=== PATIENT | female | born 1975 | race Caucasian/White ===

== ENCOUNTER → 2016-11-25 19:21 | Outpatient (CLI) | payer BC ==
[2014-12-09 12:22] VITALS: BMI 21.1
[~2016-11-25 19:21] MED LIST: CYCLOBENZAPRINE10 MG PO; HYDROCODONE-APA1 TAB PO; IBUPROFEN600 MG PO; LAMICTAL100 MG PO; MOBIC7.5 MG PO; NEURONTIN 300300 MG PO; PEPCID20 MG PO; WELLBUTRIN SR150 MG PO; XANAX0.5 MG PO
== END | disposition home or self-care (01) ==
LOC: D.RAD 19:21
DX: S69.91XA Unspecified injury of right wrist, hand and finger(s), initial encounter (principal)

== ENCOUNTER → 2017-02-08 16:05 | Outpatient (CLI) | payer BC ==
[2014-12-09 12:22] VITALS: BMI 21.1
== END | disposition home or self-care (01) ==
LOC: D.CT 16:00
DX: R10.32 Left lower quadrant pain (principal)

== ENCOUNTER 2017-06-02 16:45 | Emergency (ER) | payer BC ==
[2014-12-09 12:22] VITALS: BMI 21.1
[2017-06-02 17:24] LABS: BASOPHILS 0.1 % (0-2); EOSINOPHILS 3.6 % (0-7); HEMATOCRIT 39.3 % (36.0-48.0); HEMOGLOBIN 13.7 g/dL (12-16); IMMATURE GRANULOCYTES 0.3 % (0-5); LYMPHOCYTES 32.6 % (15-50); MCH 30.4 pg (26.0-34.0); MCHC 34.9 g/dL (31.0-37.0); MCV 87.3 fL (80.0-100.0); MEAN PLATELET VOLUME 9.4 fL (7.4-10.4); MONOCYTES 9.7 % (2-11); NEUTROPHILS 53.7 % (40-80); PLATELET COUNT 246 10x3/uL (130-400); RDW 13.1 % (11.5-14.5); WBC 7.9 10x3/uL (4.8-10.8)
[2017-06-02 17:38] LABS: ALBUMIN 3.9 g/dL (3.4-5.0); ALKALINE PHOSPHATASE 54 U/L (46-116); ALT (SGPT) 12 U/L (10-68); BILIRUBIN - TOTAL 0.16 mg/dL (0.2-1.3); CALC OSMOLALITY 277 mosm/kg (275-300); CALCIUM 8.8 mg/dL (8.5-10.1); CARBON DIOXIDE 22.5 mmol/L (21.0-32.0); CHLORIDE - SERUM 106 mmol/L (98-107); CREATININE - SERUM 0.7 mg/dL (0.6-1.3); GLUCOSE 115 mg/dL (74-106); POTASSIUM - SERUM 3.8 mmol/L (3.5-5.1); PROTEIN - SERUM 7.3 g/dL (6.4-8.2); SODIUM 140 mmol/L (136-145); UREA NITROGEN 8 mg/dL (7-18); eGFR NON AFRICAN AMERICAN > 90 mL/min (90-120)
[2017-06-02 17:49] LABS: CHOL - HDL RATIO 3.7 ratio (2.3-4.1); CHOLESTEROL, TOTAL 152 mg/dL (0-200); CKMB 0.4 U/L (0.0-3.6); CREATINE KINASE 65 UL (21-215); HDL CHOLESTEROL 41 mg/dL (32-96); LDL CHOLESTEROL 90 mg/dL (0-100); LDL-HDL RATIO 2.2 ratio (1.5-3.5); TRIGLYCERIDE 105 mg/dL (30-200)
[2017-06-02 17:50] LABS: TROPONIN-I < 0.017 ng/mL (0.000-0.060)
== END 2017-06-02 21:33 | disposition home or self-care (01) ==
LOC: D.ER 16:45
PROVIDERS: Emergency Medicine
DX: R07.89 Other chest pain (principal); K21.9 Gastro-esophageal reflux disease without esophagitis; I10 Essential (primary) hypertension; F17.200 Nicotine dependence, unspecified, uncomplicated

== ENCOUNTER 2017-06-03 03:55 | Emergency (ER) | payer BC ==
[2014-12-09 12:22] VITALS: BMI 21.1
[2017-06-03 04:21] LABS: BASOPHILS 0.2 % (0-2); EOSINOPHILS 2.4 % (0-7); HEMATOCRIT 39.6 % (36.0-48.0); HEMOGLOBIN 13.9 g/dL (12-16); IMMATURE GRANULOCYTES 0.3 % (0-5); LYMPHOCYTES 30.7 % (15-50); MCH 30.2 pg (26.0-34.0); MCHC 35.1 g/dL (31.0-37.0); MCV 85.9 fL (80.0-100.0); MEAN PLATELET VOLUME 9.4 fL (7.4-10.4); MONOCYTES 8.7 % (2-11); NEUTROPHILS 57.7 % (40-80); PLATELET COUNT 268 10x3/uL (130-400); RBC 4.61 10x6/uL (4.00-5.40); RDW 13.1 % (11.5-14.5)
[2017-06-03 04:22] LABS: WBC 13.6 10x3/uL (4.8-10.8)
[2017-06-03 05:01] LABS: CKMB 1.3 U/L (0.0-3.6); CREATINE KINASE 66 UL (21-215); TROPONIN-I 0.053 ng/mL (0.000-0.060)
[2017-06-04] MEDS ORDERED: PREVACID30 MG PO (02:27)
[2017-06-04] MEDS ORDERED: ATIVAN0.5 MG PO (02:38)
[2017-06-04] MEDS ORDERED: NORMODYNE / TR100 MG PO (02:38)
== END 2017-06-03 06:13 | disposition home or self-care (01) ==
LOC: D.ER 03:55
PROVIDERS: Emergency Medicine
DX: R07.9 Chest pain, unspecified (principal); K21.9 Gastro-esophageal reflux disease without esophagitis; I10 Essential (primary) hypertension

== ENCOUNTER 2017-06-03 23:23 | Observation (INO) | payer BC ==
[~2017-06-03] VITALS: Ht 165.1 cm; Wt 59.1 kg
--- NOTE | ~2017-06-03 | HEMODYNAMI ---
PATIENT:ANTHONY MANCINI MEDICAL RECORD: [id number] : 73 LOCATION:[facility] [place] ADMISSION DATE: 06/04/17 Generatedon:06/04/201710:57 Patient name: ANTHONY MANCINI Patient #: [id number] SSN: DO B: 1975 Date of study: 06/04/2017 Page: Of Hemodynamic Procedure Report Patient Data Patient Demographics Procedure consent was obtained First Name: ANTHONY Gender: Female Last Name: ADDIS : 1975 Middle Initial: ALBERT Age: 41 year(s) Patient #: [id number] Race: Unknown Additional ID: [id number] Contact details [address]: [address] [place] [address] State: [place] City: [place] Zip code: [address] Past Medical History Allergies Allergen Reaction Date Comments Reported Natural rubber 06/04/2017 and latex Other allergy 06/04/2017 dilaudid, lyrica Admission Admission Data Admission Date: 06/04/2017 Admission Time: 2:05 Room #: [id number] Procedure Procedure Types Cath Procedure Diagnostic Procedure [facility] w/Coronaries PCI Procedure Coronary Stent Coronary Stent Initial Miscellaneous Procedures Moderate Sedation up to 15 minutes Procedure Description Procedure Date Procedure Date: 06/04/2017 Procedure Start Time: 10:36 Procedure End Time: 10:56 Procedure Staff Name Function Davidson Guadalupe MD Performing Physician Cierra Tinsley RT Monitor Clinton Castillo RT Scrub Diony Price RN Nurse Procedure Data Cath Procedure Fluoroscopy Diagnostic fluoroscopy Total fluoroscopy Time: 3.5 time: 3.5 min min Diagnostic fluoroscopy Total fluoroscopy dose: 315 dose: 315 mGy mGy Contrast Material Contrast Material Type Amount (ml) Isovue 300 70 Entry Location Entry Primary Successful Side Size Upsize Upsize Entry Closure Ervin ccessful Closure Location (Fr) 1 (Fr) 2 (Fr) Remarks Device Remarks Radial Right 6 Fr Mechanical artery Short Compression Estimated blood loss: 10 ml Diagnostic catheters Device Type Used For End Catheter Placement DIAGNOSTIC Fenwick 110cm 5 LV Angiography Fr catheter ([id number]) DIAGNOSTIC Fenwick 110cm 5 Right Coronary Fr catheter ([id number]) Angiography DIAGNOSTIC Fenwick 110cm 5 Left Coronary Fr catheter ([id number]) Angiography Procedure Complications No complications Procedure Medications Medication Administration Route Dosage 0.9% NaCl I.V. 100 ml/hr Oxygen NC 2 l/min Heparin Flush Bag added to field 2 bags (1000units/500ml NS) Lidocaine 2% added to field 20 Radial Cocktail added to field 1 syringe (Verapomil 2mg/Nitro 400mcg/Heparin 1500units) Versed I.V. 1 mg Fentanyl I.V. 50 mcg Radial Cocktail I.A. 1 syringe (Verapomil 2mg/Nitro 400mcg/Heparin 1500units) Heparin Bolus I.V. 4000 units Integrilin (Bolus I.V. 5 ml 2mg/ml) Integrilin (Bolus wasted 5 ml 2mg/ml) Versed I.V. 1 mg Fentanyl I.V. 50 mcg Plavix P.O. 600 mg Hemodynamics Rest Heart Rate: 83 (bpm) Snapshots Pre Cath Intra NCS Post Cath Vital Signs Time Heart Resp SPO2 etCO2 NIBP (mmHg) Rhythm Pain Sedation Rate (ipm) (%) (mmHg) Status Level (bpm) 10:17:13 81 16 96 33.2 124/82(102) NSR 0 (11) 10(A) , No pain 10:21:48 85 13 97 31.7 124/82(94) NSR 0 (11) 10(A) , No pain 10:26:24 87 15 94 32.4 124/77(95) NSR 0 (11) 10(A) , No pain 10:31:01 85 15 95 36.3 119/71(91) NSR 0 (11) 10(A) , No pain 10:35:35 84 14 98 35.5 111/82(94) NSR 0 (11) 9(A) , No pain 10:40:07 92 16 92 37.8 105/76(92) NSR 0 (11) 9(A) , No pain 10:44:36 90 14 95 27.9 117/76(96) NSR 0 (11) 9(A) , No pain 10:49:12 90 16 94 40.8 118/72(90) NSR 0 (11) 10(A) , No pain 10:53:45 85 17 93 0 113/72(87) NSR 0 (11) 10(A) , No pain Medications Time Medication Route Dose Verified Delivered Reason Note s Effectiveness by by 10:23:37 0.9% NaCl I.V. 100 Diony Diony Per physician ml/hr Albert Price RN RN 10:23:48 Oxygen NC 2 l/min Diony Diony Per physician Albert Price RN RN 10:24:10 Heparin Flush added 2 bags Diony Diony used for Bag to Albert Price procedure (1000units/500ml field RN RN NS) 10:24:33 Lidocaine 2% added 20ml Diony Diony for local to vial Albert Price anesthetic RN RN 10:24:45 Radial Cocktail added 1 Diony Diony for (Verapomil to syringe Albert Price vasodilation 2mg/Nitro field RN RN 400mcg/Heparin 1500units) 10:35:57 Versed I.V. 1 mg Diony Diony for sedation Albert Price RN RN 10:36:08 Fentanyl I.V. 50 mcg Diony Diony for sedation Albert Price RN RN 10:37:05 Radial Cocktail I.A. 1 Diony Davidson for (Verapomil syringe Albert Guadalupe MD vasodilation 2mg/Nitro RN 400mcg/Heparin 1500units) 10:44:42 Heparin Bolus I.V. 4000 Diony Diony for units Albert Price anticoagulation RN RN 10:45:00 Integrilin I.V. 5 ml Diony Diony for (Bolus 2mg/ml) Albert Price antiplatelet RN RN therapy 10:46:06 Integrilin wasted 5 ml Diony Diony to sharp's (Bolus 2mg/ml) Albert Price RN RN 10:47:04 Versed I.V. 1 mg Diony Diony for sedation Albert Price RN RN 10:47:12 Fentanyl I.V. 50 mcg Diony Diony for sedation Albert Price RN RN 10:51:44 Plavix P.O. 600 mg Diony Diony for Albert Price antiplatelet RN RN therapy Procedure Log Time Note 10:03:14 Clinton BOLDEN(R) sent for patient. Start room use. 10:03:15 Time tracking: Regular hours 10:03:20 Plan of Care:Hemodynamics will remain stable., Cardiac rhythm will remain stable., Comfort level will be maintained., Respiratory function will remain adequate., Patient/ family verbilizes understanding of procedure., Procedure tolerated without complication., Recovers from procedure without complications.. 10:12:16 Patient received from Med/Surg to CCL 1 Alert and oriented. Tansferred to table in Supine position. 10:12:18 Warm blankets applied, and connie hugger turned on for patient comfort. 10:12:18 Correct patient and procedure confirmed by team. 10:12:20 Signed procedure consent form obtained from patient. 10:12:20 ECG and BP/O2 sat monitors applied to patient. 10:16:26 Vital chart was started 10:17:42 Baseline sample Acquired. 10:23:13 Full Disclosure recording started 10:23:19 Rhythm: sinus rhythm 10:23:37 0.9% NaCl 100 ml/hr I.V. was administered by Diony Price RN; Per physician; 10:23:48 Oxygen 2 l/min NC was administered by Diony Price RN; Per physician; 10:23:56 H&P Date Dictated: 06/04/2017 Within 30 days and on chart.. 10:23:57 Pre-procedure instructions explained to patient. 10:23:58 Pre-op teaching completed and patient verbalized understanding. 10:24:00 Family in patients room. 10:24:01 Patient NPO since Midnight. 10:24:09 Patient allergic to Natural rubber and latex 10:24:10 Heparin Flush Bag (1000units/500ml NS) 2 bags added to field was administered by Diony Price RN; used for procedure; 10:24:31 Patient allergic to Other allergy dilaudid, lyrica 10:24:33 Lidocaine 2% 20ml vial added to field was administered by Diony Price RN; for local anesthetic; 10:24:43 Is the patient allergic to Iodine/contrast media? No. 10:24:45 Radial Cocktail (Verapomil 2mg/Nitro 400mcg/Heparin 1500units) 1 syringe added to field was administered by Diony Price RN; for vasodilation; 10:25:45 Is patient on blood thinner?No 10:25:48 Patient diabetic? No. 10:25:51 Previous problem with sedation/anesthesia? No ? 10:25:53 Snore? No 10:25:55 Sleep apnea? No 10:27:43 Patient not . Patient has had hysterectomy. 10:27:45 Deviated septum? No 10:27:46 Opens mouth fully? Yes 10:27:46 Sticks out tongue? Yes 10:27:48 Airway obstruction? No ? 10:27:50 Dentures? No ? 10:28:28 Pre procedure: right dorsailis pedis pulse 2+ Normal; easily identifiable; not easily obliterated 10:28:32 Modified Brandon's test Ulnar < 7 seconds 10:28:34 Patient pain scale 0/10 ?. 10:28:42 IV patent on arrival in left forearm with 0.9% NaCl at [facility]. 10:28:45 Lab results completed and on chart. 10:28:47 Right Radial & Right Groin area was prepped with chlora-prep and draped in sterile fashion 10:28:49 Alarms reviewed by R. N. 10:28:49 Sharps counted by scrub and verified by R.N. 10:28:53 Use device set Radial Dx 10:28:55 ACIST Syringe (13015) opened to sterile field. 10:28:56 Medline Cath Pack ([id number]) opened to sterile field. 10:28:56 Bag Decanter (2002S) opened to sterile field. 10:28:57 SHEATH 6FR Slender ([id number]) opened to sterile field. 10:28:58 DIAGNOSTIC WIRE .035 260cm J wire (363312) opened to sterile field. 10:28:58 ACIST Hand Control (26230) opened to sterile field. 10:28:59 ACIST Manifold (56596) opened to sterile field. 10:29:00 Tegaderm 4 x 4 (1626W) opened to sterile field. 10:29:04 MBrace Wrist Support ([id number]) opened to sterile field. 10:30:55 Zero performed for pressure channel P1 10:35:02 Final Timeout: patient, procedure, and site verified with staff and physician. All members of the team are in agreement. 10:35:05 Right Radial site verified by team. 10:35:08 Physical assessment completed. ASA score P 2 - A patient with mild systemic disease as per Davidson Guadalupe MD. 10:35:11 Sedation plan: IV Moderate Sedation Medication:Versed, Fentanyl 10:35:57 Versed 1 mg I.V. was administered by Diony Price RN; for sedation; 10:36:08 Fentanyl 50 mcg I.V. was administered by Diony Price RN; for sedation; 10:36:14 Procedure started. 10:36:19 Local anesthetic to right radial artery with Lidocaine 2% by Davidson Guadalupe MD.INITIAL ACCESS ONLY 10:36:46 A 6 Fr Short sheath was inserted into the Right Radial artery 10:37:05 Radial Cocktail (Verapomil 2mg/Nitro 400mcg/Heparin 1500units) 1 syringe I.A. was administered by Davidson Guadalupe MD; for vasodilation; 10:38:11 A DIAGNOSTIC Fenwick 110cm 5 Fr catheter (650419) was advanced over the wire and used for LV Angiography. 10:38:39 LV gram done using BUENROSTRO 10:38:44 Injector settings: Ml/sec: 5, Volume: 15, 10:38:50 EF : 60 % 10:38:59 A DIAGNOSTIC Fenwick 110cm 5 Fr catheter ([id number]) was advanced over the wire and used for Right Coronary Angiography. 10:39:15 A DIAGNOSTIC Fenwick 110cm 5 Fr catheter (590068) was advanced over the wire and used for Left Coronary Angiography. 10:39:49 Catheter removed. 10:40:06 Use device set [facility] PCI 10:40:16 INFLATOR Merit BasixCompak (YX8179) opened to sterile field. 10:42:27 CHOICE PT Extra Support J 300cm guide wire ([id number]) opened to sterile field. 10:43:37 6 Fr XB 3.5 guide catheter was inserted over the wire 10:43:45 Choice PT ES wire advanced. 10:44:32 Inflation number: 1 A MAVERICK 2.5 X 15 balloon ([id number]) was prepped and advanced across the Mid CX, then inflated to 9 RODRÍGUEZ for 0:10 (min:sec). 10:44:41 Inflation number: 2 The MAVERICK 2.5 X 15 balloon ([id number]) was reinflated across the Mid CX, to 9 RODRÍGUEZ for 0:06 (min:sec). 10:44:42 Heparin Bolus 4000 units I.V. was administered by Diony Lorigan RN; for anticoagulation; 10:44:50 Balloon removed over the wire. 10:45:00 Integrilin (Bolus 2mg/ml) 5 ml I.V. was administered by Diony Price RN; for antiplatelet therapy; 10:46:06 Integrilin (Bolus 2mg/ml) 5 ml wasted was administered by Diony Price RN; to sharp's; 10:46:37 Inflation Number: 3 A INTEGRITY OTW 3.5 X 18 stent ([id number]) was prepped and advanced across the Mid CX. The stent was deployed at 13 RODRÍGUEZ for 0:05 (min:sec). 10:46:58 Stent catheter was removed intact over wire. 10:46:58 Wire removed. 10:47:00 Guide catheter removed. 10:47:04 Versed 1 mg I.V. was administered by Diony Price RN; for sedation; 10:47:12 Fentanyl 50 mcg I.V. was administered by Diony Price RN; for sedation; 10:47:16 Sheath removed intact; hemostasis achieved with Mechanical Compression to the Right Radial artery. 10:47:18 Procedure ended.(Physican Out) 10:47:31 TR BAND Standard ([id number]) opened to sterile field. 10:47:42 Fluoroscopy time 03.50 minutes. 10:47:47 Fluoroscopy dose: 315 mGy 10:47:47 Flurop Dose total: 315 10:47:50 Contrast amount:Isovue 300 70ml. 10:47:51 Sharps counted by scrub and verified by R.N. 10:47:55 TR band inflated with 12cc of air. 10:47:57 Insertion/operative site no bleeding no hematoma. 10:48:03 Post right femoral artery:stable, clean and dry 10:48:18 Post Procedure Pulses reassessed and unchanged 10:48:20 Post-procedure physical assessment completed. ASA score P 2 - A patient with mild systemic disease as per Davidson Guadalupe MD. 10:48:22 Post procedure rhythm: unchanged. 10:48:24 Estimated blood loss: 10 ml 10:48:26 Post procedure instruction explained to patient.Patient verbalizes understanding. 10:48:26 Patient needs reinforcement of post procedure teaching. 10:48:43 Procedure type changed to Cath procedure, Diagnostic procedure, LHC, LHC w/Coronaries, PCI procedure, Coronary Stent, Coronary Stent Initial, Miscellaneous Procedures, Moderate Sedation up to 15 minutes 10:48:48 Procedure Complication : No complications 10:48:51 See physician's report for complete and final results. 10:49:54 GUIDE 6FR XB 3.5 catheter ([id number]) opened to sterile field. 10:51:44 Plavix 600 mg P.O. was administered by Diony Price RN; for antiplatelet therapy; 10:52:42 Procedure and supply charges have been captured, reviewed, submitted and are correct. 10:53:57 Vital chart was stopped 10:55:54 Report given to Med/Surg. 10:55:59 Patient transfered to Med/Surg with Bed. 10:56:11 Procedure ended. 10:56:11 Full Disclosure recording stopped 10:56:16 End room use (Document Last) Intervention Summary Intervention Notes Time ActionType Lesion and Equipment Action# Pressure Duration Attributes Used 10:44:32 Inflate Mid CX MAVERICK 2.5 1 9 00:10 balloon X 15 balloon ([id number]) 10:44:41 Reinflate Mid CX MAVERICK 2.5 2 9 00:06 balloon X 15 balloon ([id number]) 10:46:37 Place stent Mid CX INTEGRITY 3 13 00:05 OTW 3.5 X 18 stent ([id number]) Device Usage Item Name Manufacture Quantity Catalog Number Hospital Part Current Min imal Lot# / Charge Number Stock Stock Serial# Code ACIST Acist 1 67397 397996 973853 977547 20 Syringe [employer] (36391) Systems Inc Medline Cath Cardinal 1 [id number] 918355 00199 373302 5 Pack N30 [employer]aceuticals ([id number]) Bag Decanter Microtek 1 2001S 399243 43313 720247 5 () Medical Inc. SHEATH 6FR Terumo 1 [id number] 384094 914655 151690 40 Slender ([id number]) DIAGNOSTIC St Navjot 1 410978 155372 349800 043126 30 WIRE .035 260cm J wire (114998) ACIST Hand Acist 1 85592 831698 159834 882510 5 Control Medical (11360) Systems Inc ACIST Acist 1 20832 942219 945482 953580 5 Manifold Medical (42168) Systems Inc Tegaderm 4 x 3M 1 1626W 722189 727029 506648 5 4 (1626W) MBrace Wrist Advanced 1 140-0250-00 079010 11584 765320 5 Support Vascular ([id number]) Dynamics DIAGNOSTIC Terumo 1 40-5013 673857 279804 378510 5 Fenwick 110cm 5 Fr catheter (508741) INFLATOR Merit 1 FJ1786 447926 146612 945634 15 [facility] Medical BasixCompak (JM4476) CHOICE PT [place] 1 [id number] 537927 20181230 086175 5 Extra Scientific Support J 300cm guide wire ([id number]) MAVERICK 2.5 [place] 1 [id number] 199768 321019 983371 1 [id number] X 15 balloon Scientific ([id number]) INTEGRITY Medtronic 1 [id number] 966015 836149 5 [id number] OTW 3.5 X 18 stent ([id number]) TR BAND Terumo 1 [id number] 777288 815518 198192 40 Standard ([id number]) GUIDE 6FR XB Cardinal 1 [id number] 969703 944110 138507 2 3.5 catheter Health (44835974) Signature Audit [place] Stage Time Signature Unsigned Intra-Procedure 06/04/2017 Cierra 10:56:57 AM Counts RT(R) Signatures Monitor : Cierra Signature : Counts RT Date : Time : [id number] [place] [address]
[2017-06-04] VITALS (8 sets, daily range): BP systolic 105–127; BP diastolic 69–84; Ht 165.1 cm; Wt 59.1 kg
[2017-06-04 00:14] LABS: HEMATOCRIT 41.9 % (36.0-48.0); HEMOGLOBIN 14.9 g/dL (12-16); MCH 30.2 pg (26.0-34.0); MCHC 35.6 g/dL (31.0-37.0); MEAN PLATELET VOLUME 9.1 fL (7.4-10.4); PLATELET COUNT 311 10x3/uL (130-400); RBC 4.93 10x6/uL (4.00-5.40); RDW 13.6 % (11.5-14.5); WBC 22.6 10x3/uL (4.8-10.8)
[2017-06-04 00:28] LABS: ALBUMIN 4.1 g/dL (3.4-5.0); ALKALINE PHOSPHATASE 56 U/L (46-116); CALC OSMOLALITY 277 mosm/kg (275-300); CALCIUM 9.6 mg/dL (8.5-10.1); CARBON DIOXIDE 20.7 mmol/L (21.0-32.0); CHLORIDE - SERUM 104 mmol/L (98-107); CREATININE - SERUM 0.8 mg/dL (0.6-1.3); GLUCOSE 130 mg/dL (74-106); POTASSIUM - SERUM 3.9 mmol/L (3.5-5.1); SODIUM 139 mmol/L (136-145); UREA NITROGEN 8 mg/dL (7-18); eGFR NON AFRICAN AMERICAN 83 mL/min (90-120)
[2017-06-04 00:36] LABS: ALT (SGPT) 30 U/L (10-68)
[2017-06-04 00:44] LABS: AMYLASE - SERUM 29 U/L (25-115); CHOL - HDL RATIO 3.7 ratio (2.3-4.1); CHOLESTEROL, TOTAL 186 mg/dL (0-200); CKMB 223.9 U/L (0.0-3.6); HDL CHOLESTEROL 51 mg/dL (32-96); LDL CHOLESTEROL 114 mg/dL (0-100); LDL-HDL RATIO 2.2 ratio (1.5-3.5); LIPASE 108 U/L (73-393); TRIGLYCERIDE 107 mg/dL (30-200)
[2017-06-04 00:49] LABS: CREATINE KINASE 1463 UL (21-215)
[2017-06-04 00:52] LABS: TROPONIN-I 18.839 ng/mL (0.000-0.060)
[2017-06-04 01:29] LABS: LYMPHOCYTES 9 % (15-50); MONOCYTES 2 % (2-11); NEUTROPHILS 88 % (40-80); PLATELET ESTIMATE NORMAL
[2017-06-04] MEDS ORDERED: PREVACID30 MG PO (02:27)
[2017-06-04] MEDS ORDERED: ATIVAN0.5 MG PO (02:38)
[2017-06-04] MEDS ORDERED: NORMODYNE / TR100 MG PO (02:38)
[2017-06-04 03:10] LABS: CREATINE KINASE 1489 UL (21-215); TROPONIN-I 27.218 ng/mL (0.000-0.060)
[2017-06-04 03:11] LABS: CKMB 221.6 U/L (0.0-3.6)
--- NOTE | 2017-06-04 06:35 | NUR ---
PT RECEIVED VIA WHEELCHAIR FROM ER @ 02:20 THIS A.M., AWAKE, ALERT, ORIENTED WITH FAMILY AT SIDE. PT DENIED CHEST PAIN INITIALLY, STATING THE TORADOL AND MORPHINE IN THE ER DID HELP WITH HER PAIN, HOWEVER WITHIN 4 HOURS PT HAD ANOTHER EPISODE OF CHEST PAIN WITH RADIATION INTO HER NECK AND SHOULDERS. PRN MORPHINE GIVEN WITH MILD RELIEF. I ALSO PLACED O2 VIA NC ON PT FOR COMFORT MEASURES, PT DID DEMONSTRATE INCREASED SOB WITH HER ANGINA. PT IS CURRENTLY SITTING UP IN BED, TALKING ON HER CELL PHONE, FAMILY STILL AT BEDSIDE. NO NEEDS AT THIS TIME. CONTINUE TO MONITOR.
--- NOTE | 2017-06-04 08:26 | NUR ---
PT SEEN EARILER. COMPLAINTS OF PAIN GENERALIZED TO HEAD, BACK, AND CHEST. PAIN MEDS GIVEN. OXYGEN ON AT 2 L PER NC. NO SOB NOTED OR NO NAUSEA EITHER. NPO FOR POSSIBLE PROCEDURE TODAY. FAMILY AT BEDSIDE. MONITOR SHOWS SR 98. CALL LIGHT IN REACH
[2017-06-04 08:29] LABS: CKMB 206.8 U/L (0.0-3.6)
[2017-06-04 08:34] LABS: CREATINE KINASE 1465 UL (21-215); TROPONIN-I 38.459 ng/mL (0.000-0.060)
--- NOTE | 2017-06-04 09:47 | NUR ---
PT UP TO BATHROOM TO VOID. PRE OP MEDICATION GIVEN AND NITRO PASTE TAPED TO RIGHT RADIAL PULSE. FAMILY AT BEDSIDE
--- NOTE | 2017-06-04 11:15 | NUR ---
RETURNED FROM INSPECTOR WIRE ROPE PER BED. DROWSY. RESP EVEN AND UNLABORED. VS 109/77 P 89 R 16. TR BAND NOTED TO RIGHT RADIAL. INFLATED TO 10CC OF AIR. FAMILY AT BEDSIDE
--- NOTE | 2017-06-04 11:30 | NUR ---
PT ASLEEP. TR BAND ON R WRIST SITE IS CLEANED WITHOUT ANY BLEEDING EDEMA. BAND IS STILL INFLATED. WILL CONTINUE TO MONITOR. MONITOR SHOWS 97 NSR.
--- NOTE | 2017-06-04 12:56 | NUR ---
resting quietly on right side. tr band in place. fingers warm and pink. family at bedside. call light in reach
--- NOTE | 2017-06-04 14:05 | NUR ---
SITE HAS BEEN CLEAN DRY NO BLEEDING OR EDEMA. 5 CC OF AIR EXTRACTED. MODERATE AMT OF BLEEDING NOTED NOW. 5 CC OF AIR INJECTED BACK.
--- NOTE | 2017-06-04 14:19 | NUR ---
NO FURTHER BLEEDING. AREA MARKED. 5 CC OF AIR EXTRACTED. AFTER 5 MINS NO FURTHER BLEEDING.
--- NOTE | 2017-06-04 14:44 | NUR ---
PT SEEN. 5CC AIR DEFLATED FROM TR BAND. NO BLEEDING NOTED AT SITE. WILL CONTINUE TO MONITOR FOR BLEEDING BEFORE REMOVED BAND. SYRINGE IN PT HAND. FAMILY AT BEDSIDE. NO PAIN VOICED.
[2017-06-04 14:55] LABS: CKMB 185.2 U/L (0.0-3.6)
--- NOTE | 2017-06-04 15:00 | NUR ---
TR BAND COMPLETELY DEFLATED. NO FURTHER BLEEDING NOR SWELLING. TR BAND REMOVED. SITE CLEAN WITHOUT SWELLING OR BLEEDING. DRESSING PLACED ALONG WITH SPLINT. NO FURTHER BLEEDING. UP TO BR TO VOID WITH ASSISTANCE.
[2017-06-04 15:27] LABS: CREATINE KINASE 1367 UL (21-215)
[2017-06-04 15:29] LABS: TROPONIN-I 90.195 ng/mL (0.000-0.060)
--- NOTE | 2017-06-04 21:12 | NUR ---
PT ARRIVED TO ROOM 2122 VIA WHEEL CHAIR. FAMLILY AT BEDSIDE. PT AAO X4. IV ON LEFT FOREARM S/L. SPLINT ON RIGHT ARM. PT DENIES ANY CHEST PAIN AT THIS TIME. DENIES ANY NEEDS. NO S/S OF DISTRESS. BEDLOW AND CALL LIGHT IN REACH. WILL CPOC
--- NOTE | 2017-06-05 01:42 | NUR ---
PT UP TO RESTROOM. CUP GIVEN FOR URINALYSIS. PT DENIES ANY NEEDS. NO S/S OF DISTRESS. WILL CPOC
[2017-06-05 02:24] LABS: APPEARANCE CLEAR (CLEAR); BILIRUBIN NEGATIVE (NEGATIVE); COLOR YELLOW (YELLOW); GLUCOSE NEGATIVE (NEGATIVE); KETONE NEGATIVE (NEGATIVE); NITRITE NEGATIVE (NEGATIVE); PROTEIN TRACE mg/dL (NEGATIVE); UROBILINOGEN NORMAL (NORMAL)
[2017-06-05 02:25] LABS: BACTERIA FEW /hpf (NONE SEEN); EPITHELIAL CELLS 0-5 /hpf (0-5); MUCUS <1+ /lpf (NONE SEEN); RED CELLS - URINE 0-5 /hpf (0-5); WHITE CELLS - URINE 0-5 /hpf (0-5)
[2017-06-05 04:44] VITALS: BP 101/71
--- NOTE | 2017-06-05 06:01 | NUR ---
PT ASLEEP IN BED WITH , PT AROUSES TO VERBAL STIMULI, PT DENIES ANY NEEDS. DENIES ANY PAIN. NO S/S OF DISTRESS. BED LOW AND CALL LIGHT IN REACH. WILL CPOC
[2017-06-05 08:21] VITALS: BP 114/66
--- NOTE | 2017-06-05 11:04 | NUR ---
THIS AM PT RESTING QUIETLY IN BED. UP TO BR AD SARAH. DOES NOT NEED SCDS DUE TO AMBULATING. MONITOR SHOWS NSR @ 84. TR BAND SITE CLEAR WITHOUT ANY BLEEDING EDEMA.
[2017-06-05 11:34] VITALS: BP 100/63
[2017-06-05 16:14] VITALS: BP 105/70
--- NOTE | 2017-06-05 16:19 | HP ---
PATIENT: ANTHONY MANCINI MEDICAL RECORD: [id number] ACCOUNT: [id number] LOCATION:[address] : 73 ADMISSION DATE: 06/04/17 HISTORY AND PHYSICAL EXAMINATION CHIEF COMPLAINT: 1. Chest pain. 2. Elevated troponin. HISTORY OF PRESENT ILLNESS: Mrs. Mancini began having chest pain, on Saturday she had chest pain all day and Saturday all night and Saturday night, she presented to the Emergency Room. Troponin was normal. She continued to have chest pain. She presented back to the Emergency Room in the Saturday morning. Her troponin was still normal. She continued to have chest pain. She presented to the Emergency Room again Saturday night, her troponin is 18. Her EKG is with no changes. She continues to have chest pain. She did have a viral sinusitis type of illness prior to this. She does not have a family history of coronary artery disease. No other real cardiac risk factors. REVIEW OF SYSTEMS: The patient reports easy bruising but reports no swollen glands. The patient reports no fever, no night sweats, no significant weight gain, no significant weight loss. No significant exercise tolerance. The patient reports no dry eyes, no irritation, no vision change. Patient reports no difficulty hearing and no ear pain. Patient reports no frequent nose bleeds or nose and sinus problems. Patient reports on arm pain on exertion. No shortness of breath while lying down. No history of heart murmur. Patient reports no cough, no wheezing or coughing up blood. Patient reports no abdominal pain, no vomiting. Normal appetite. No diarrhea and not vomiting blood. No nausea and no constipation. Patient reports no incontinence. No difficulty urinating. No hematuria. No increased frequency. Patient reports no muscle aches. No weakness, no arthralgias, no back pain. No swelling of the extremities. Patient reports no abnormal mole, no jaundice, no rashes. Reports no loss of consciousness. No weakness and no numbness. No seizures, dizziness, or headaches. The patient reports no depression, no sleep disturbance, feeling safe in a relationship and no alcohol abuse. Patient reports on fatigue. Reports no runny nose or sinus pressure. No itching, no hives, and no frequent sneezing. PHYSICAL EXAMINATION: GENERAL APPEARANCE: Well-nourished, well-developed, appears stated age. Level of distress, comfortable. PSYCHIATRIC: Mental status, alert, normal affect. Orientation, oriented to time, place and person. EYES: Lids and conjunctiva, noninjected. No discharge, no pallor. ENT: Lips, teeth, gums, normal dentition. Oropharynx, no cyanosis, no pallor. NECK: Carotid arteries, bilateral normal upstroke, no bruits, no thrills. JUGULAR VEINS: No jugular venous pressure or distention. CERVICAL LYMPH NODES: Nontender, nonenlarged. THYROID: Not enlarged. Nontender. No nodules. LUNGS: Respiratory effort, unlabored. CHEST: Normal curvature. No thoracic deformity. No chest wall tenderness. Percussion, resonant. Auscultation, clear. No wheezes, no rales, no rhonchi. CARDIOVASCULAR: Precordial exam, nondisplaced. No heaves or pericardial thrills. Rate and rhythm, regular. Heart sounds, normal S1, normal S2. No S3, no gallop, no rub. Systolic murmur, not heard. Diastolic murmur, not heard. HISTORY AND PHYSICAL [id number] ANTHONY MANCINI EXTREMITIES: No cyanosis, no edema. Peripheral pulses, full and equal in all extremities, except as noted. No bruits appreciated. ABDOMEN: Soft, nondistended. Normal aorta. No bruit. Nontender. No masses. Liver, nontender, no hepatomegaly. Spleen, nontender, no splenomegaly. MUSCULOSKELETAL: No joint tenderness. No joint swelling. No erythema. NEUROLOGICAL: Normal gait, normal strength, normal tone. SKIN: Warm and dry. OVERALL IMPRESSION: Chest pain, most likely pericarditis, but with the elevated troponin and continued chest pain, we will proceed with coronary angiography. Initiate Toradol for symptomatic treatment and nonsteroidal treatment, we would consider steroids due to the elevated troponin. Also we will get an echocardiogram. TRANSINT:[id number] Voice Confirmation ID: [id number] DOCUMENT ID: [id number] GUADALUPE MASON MD at 1619 CC: [id number] DICTATION DATE: 06/04/17917 GUEST RELATIONS MANAGER: 06/04/17957 ADM IN [address] [place] [address]
[2017-06-05] MEDS ORDERED: ASPIRIN325 MG PO (17:39)
[2017-06-05] MEDS ORDERED: PLAVIX75 MG PO (17:40)
[2017-06-05] MEDS ORDERED: PRAVACHOL20 MG PO (17:40)
[2017-06-05] MEDS ORDERED: TOPROL XL25 MG PO (17:42)
--- NOTE | 2017-06-05 18:06 | NUR ---
DISCHARGE INSTRUCTIONS GIVEN TOPT AND FAMILY. TO CAR VIA
--- NOTE | 2017-06-11 12:15 | DS ---
PATIENT:ANTHONY MANCINI :73 MEDICAL RECORD: [id number] DISCHARGE SUMMARY ADMISSION DATE: 06/04/17 DISCHARGE DATE: 06/05/17 DISCHARGE DIAGNOSES: 1. Acute lateral myocardial infarction. 2. PTCA and stent of the left circumflex. HOSPITAL COURSE: Ms. 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 Underwent successful PTCA and stent of the left circumflex. Had an uneventful postop course. She was discharged home with the addition of metoprolol, Plavix, aspirin, Pravachol to her medical regimen. She will follow up with [facility] in 1 month. TRANSINT:[id number] Voice Confirmation ID: [id number] DOCUMENT ID: [id number] GUADALUPE MASON MD at 1215 CC: [id number] DICTATION DATE: 06/05/17 1620 WEIGHT AND TEST BAR CLERK: 06/06/17 1042 DIS IN 06/05/17 [address] [place] [address]
--- NOTE | 2017-06-11 12:15 | EC ---
PATIENT:ANTHONY MANCINI DATE OF SERVICE: 06/04/17 SEX: F MEDICAL RECORD: [id number] DATE OF : [birth year] LOCATION:D.M2 D.212 AGE OF PATIENT: 41 ADMISSION DATE: 06/04/17 REFERRING PHYSICIAN: INTERPRETING PHYSICIAN: GUADALUPE GUADALUPE MD ECHOCARDIOGRAM REPORT ECHO CHARGES 4 ECHO COMPLETE CLINICAL DIAGNOSIS: CHEST PAIN, CAD POST STENT ECHOCARDIOGRAPHIC MEASUREMENTS (adult normal given) AC root (d.<3.7cm) 3.3 cm LV Septum d (<1.2 cm> 1.0 cm Valve Excursion 2.0 cm LV Septum (systole) 1.4 cm Left Atria (s.<4.0cm> 3.9 cm LVPW d(<1.2cm) 1.2 cm RV (d.<2.3cm) 3.5 cm LVPW (sytole) 1.5 cm LV diastole(<5.6CM) 4.5 cm MV E-F(>70mm/sec) cm LV systole 3.1 cm LVOT Diameter 1.9 cm MV exc.(>10mm) 1.2 cm Est.ejection fraction (50-75%) % Pericardial Effusion N DOPPLER: LVIT cm/sec A 63.0 cm/sec E 91.0 cm/sec LA cm/sec RVSP 26 mmHg LVOT cm/sec AOP1/2T m/s Asc. Ao cm/sec RVOT 83 cm/sec RA cm/sec PA 100 cm/sec AV Gradient Peak mmHg AV Mean mmHg AV Area cm MV Gradient Peak 3.42 mmHg MV Mean 1.73 mmHg MV Area cm COMMENTS: TRACED JULEE 2.5 CM2 Computer Systems Auditor: Nahum BE [employer] Marketing Teacher: 1 Dr. Guadalupe TAPE# PACS DATE OF SERVICE: 06/04/2017 FINDINGS: 1. Left ventricular chamber size is within normal limits. Left ventricular systolic function is normal. Overall ejection fraction estimated at 60%. 2. Left atrium, right atrium, and right ventricular chamber sizes are within normal limits. 3. Valvular structures have normal structure and motion. 4. Doppler interrogation reveals mild mitral regurgitation, mild tricuspid regurgitation. No other valvular insufficiency or stenosis. Pulmonary systolic ECHOCARDIOGRAM REPORT [id number] ANTHONY MANCINI pressure is normal estimated at 26 mmHg. 5. No evidence of pericardial effusion or left ventricular thrombus. TRANSINT:[id number] Voice Confirmation ID: [id number] DOCUMENT ID: [id number] GUADALUPE GUADALUPE MD at 1215 CC: [id number] DICTATION DATE: 06/05/17 110 DIRECTOR OF ANALYTICAL DEVELOPMENT: 06/05/17 1239 DIS IN 06/05/17 [place] [id number] [place] [id number]
--- NOTE | 2017-06-11 12:17 | OP ---
PATIENT NAME: ANTHONY MANCINI MEDICAL RECORD: [id number] :73 LOCATION:D.M2 D.2123 ADMISSION DATE:06/04/17 SURGEON: GUADALUPE MASON MD DATE OF OPERATION: 06/04/2017 PROCEDURES: 1. PTCA stent left circumflex. 2. Left heart catheterization. 3. Selective coronary angiography. 4. Left ventriculogram. INDICATION: Myocardial infarction. PROCEDURE: After informed consent was obtained and after detailed explanation of risks, benefits as well as alternative therapies, the patient elected to proceed with angiogram and angioplasty. The right radial area was prepped and draped in normal sterile fashion. The right radial artery was cannulated via modified Seldinger technique with placement of 6-Sinhala sheath. All catheters exchanged through this sheath. FINDINGS: Left ventriculogram was performed in standard 30-degree BUENROSTRO view, reveals good cardiac wall motion throughout all segments. Overall ejection fraction estimated at 60%. SELECTIVE CORONARY ANGIOGRAPHY: 1. Left main has no significant angiographic disease. 2. Left anterior descending has moderate irregularities, but no flow-limiting stenosis. 3. Left circumflex is totally occluded in mid vessel. 4. Right coronary has a 30% to 50% stenosis in mid vessel, but no other stenosis throughout. PTCA STENT OF THE CIRCUMFLEX: The stent used is a 3.5 x 18 mm Integrity. Result was 0% residual stenosis. OVERALL IMPRESSION: Successful percutaneous transluminal coronary angioplasty stent of the left circumflex going from 100% initial stenosis to 0% residual stenosis. TRANSINT:[id number] Voice Confirmation ID: [id number] DOCUMENT ID: [id number] GUADALUPE MASON MD at 1217 CC: [id number] DICTATION DATE: 06/04/17 1053 KAIAKO KURA KAUPAPA MAORI: 06/04/17 1111 DIS IN 06/05/17 [place] [address]
== END 2017-06-05 18:07 | disposition home or self-care (01) ==
LOC: D.ER 23:23 → OBSVTIME 06-04 02:05 → D.MS 06-04 02:05 → D.M2 06-04 02:05 → D.MS 06-04 02:05 → D.M2 06-04 21:16
PROVIDERS: Family Medicine; ADMIT Internal Medicine Interventional Cardiology
DX: I21.29 ST elevation (STEMI) myocardial infarction involving other sites (principal)

== ENCOUNTER 2018-01-17 10:00 | Outpatient (CLI) | payer BC ==
[~2018-01-17] VITALS: Ht 165.1 cm; Wt 65.9 kg
--- NOTE | ~2018-01-17 | OP ---
PATIENT NAME: ANTHONY MANCINI MEDICAL RECORD: [id number] :73 LOCATION:D.CAT ADMISSION DATE: SURGEON: GUADALUPE MASON MD DATE OF OPERATION: 01/17/2018 DATE OF SERVICE: 01/17/2018 PROCEDURES: 1. PTCA stent of left circumflex. 2. Intravascular ultrasound of RCA and left circumflex. 3. Left heart catheterization. 4. Selective coronary angiography. 5. Left ventriculogram. INDICATION: Anginal symptomatology, coronary artery disease. PROCEDURE IN DETAIL: After informed consent was obtained and after detailed description of risks, benefits as well as alternative therapies, the patient elected to proceed with angiogram and angioplasty. The right radial area was prepped and draped in normal sterile fashion. Right radial artery was cannulated via modified Seldinger technique with placement of 6-Zimbabwean sheath. All catheters exchanged through this sheath. FINDINGS: Left ventriculogram was performed in standard 30-degree BUENROSTRO view, reveals good cardiac wall motion throughout all segments. Overall ejection fraction is estimated at 60%. SELECTIVE CORONARY ANGIOGRAPHY: 1. Left main is with no significant angiographic disease. 2. Left anterior descending has mild irregularities, but no flow-limiting stenosis. 3. The left circumflex has greater than 70% stenosis confirmed by intravascular ultrasound. 4. Right coronary has mild irregularities, but no flow-limiting stenosis, questionable stenosis in the mid vessel is no greater than 30% confirmed by intravascular ultrasound. PTCA STENT OF THE LEFT CIRCUMFLEX: The stent used was a 3.5 x 22 mm Copake. Result was 0% residual stenosis. OVERALL IMPRESSION: Successful percutaneous transluminal coronary angioplasty stent of the left circumflex going from 70+ percent initial stenosis to 0% residual. TRANSINT:[id number] Voice Confirmation ID: [id number] DOCUMENT ID: [id number] GUADALUPE MASON MD at 1325 CC: [id number] DICTATION DATE: 01/17/18 1633 TURBINE INSPECTOR: 01/17/18 1818 DEP CLI 01/17/18 [facility] [address] [place] [address]
--- NOTE | ~2018-01-17 | HEMODYNAMI ---
PATIENT:ANTHONY MANCINI MEDICAL RECORD: [id number] : 73 LOCATION:BENITO ADMISSION DATE: 01/17/18 Generatedon:01/17/201816:34 Patient name: ANTHONY MANCINI Patient #: [id number] SSN: DO B: 1975 Date of study: 01/17/2018 Page: Of Hemodynamic Procedure Report Patient Data Patient Demographics Procedure consent was obtained First Name: ANTHONY Gender: Female Last Name: ADDIS : 1975 Middle Initial: ALBERT Age: 42 year(s) Patient #: [id number] Race: Unknown Additional ID: [id number] Contact details [address]: [address] [place] [address] State: [place] City: [place] Zip code: [address] Past Medical History Allergies Allergen Reaction Date Comments Reported Natural rubber 06/04/2017 and latex Other allergy 06/04/2017 dilaudid, lyrica Admission Admission Data Admission Date: 01/17/2018 Admission Time: 10:00 Procedure Procedure Types Cath Procedure Diagnostic Procedure [facility] w/Coronaries FFR/IVUS Intra-Coronary IVUS Initial Intra-Coronary IVUS Additional Sedation Charges Moderate Sedation up to 15 minutes PCI Procedure Coronary Stent Coronary Stent Initial Procedure Description Procedure Date Procedure Date: 01/17/2018 Procedure Start Time: 16:12 Procedure End Time: 16:33 Procedure Staff Name Function Davidson Guadalupe MD Performing Physician Cierra Tinsley RT Monitor Diony Price RN Nurse Isaiah Roblero RT Scrub Procedure Data Cath Procedure Fluoroscopy Diagnostic fluoroscopy Total fluoroscopy Time: 4.5 time: 4.5 min min Diagnostic fluoroscopy Total fluoroscopy dose: 425 dose: 425 mGy mGy Contrast Material Contrast Material Type Amount (ml) Isovue 300 85 Entry Location Entry Primary Successful Side Size Upsize Upsize Entry Closure Ervin ccessful Closure Location (Fr) 1 (Fr) 2 (Fr) Remarks Device Remarks Radial Right 6 Fr Mechanical artery Short Compression Estimated blood loss: 10 ml Diagnostic catheters Device Type Used For End Catheter Placement DIAGNOSTIC [place] 110cm 5 LV Angiography Fr catheter ([id number]) DIAGNOSTIC [place] 110cm 5 Left Coronary Fr catheter ([id number]) Angiography DIAGNOSTIC [place] 110cm 5 Right Coronary Fr catheter ([id number]) Angiography Procedure Complications No complications Procedure Medications Medication Administration Route Dosage 0.9% NaCl I.V. 100 ml/hr Oxygen etCO2 Nasal cannula 2 l/min Heparin Flush Bag added to field 2 bags (1000units/500ml NS) Lidocaine 2% added to field 20 Radial Cocktail added to field 1 syringe (Verapomil 2mg/Nitro 400mcg/Heparin 1500units) Versed I.V. 2 mg Fentanyl I.V. 100 mcg Radial Cocktail I.A. 1 syringe (Verapomil 2mg/Nitro 400mcg/Heparin 1500units) Versed I.V. 1 mg Heparin Bolus I.V. 4000 units Integrilin (Bolus I.V. 6.2 ml 2mg/ml) Integrilin (Bolus wasted 3.8 ml 2mg/ml) Plavix P.O. 600 mg Hemodynamics Rest Heart Rate: 68 (bpm) Snapshots Pre Cath Intra NCS Post Cath Vital Signs Time Heart Resp SPO2 etCO2 NIBP Rhythm Pain Sedation Rate (ipm) (%) (mmHg) (mmHg) Status Level (bpm) 15:56:01 69 18 99 0 124/78(99) NSR 0 (11) 10(A) , No pain 16:00:33 73 14 94 0 116/76(93) NSR 0 (11) 10(A) , No pain 16:05:05 74 19 99 0 106/72(85) NSR 0 (11) 10(A) , No pain 16:09:36 73 15 94 32.8 116/67(89) NSR 0 (11) 10(A) , No pain 16:14:10 75 14 92 29 114/63(90) NSR 0 (11) 10(A) , No pain 16:18:39 85 14 92 20.1 103/67(81) NSR 0 (11) 10(A) , No pain 16:23:11 81 16 93 7.4 109/62(84) NSR 0 (11) 10(A) , No pain 16:27:43 82 14 95 0 109/65(85) NSR 0 (11) 10(A) , No pain 16:32:16 88 17 95 0 119/66(94) NSR 0 (11) 10(A) , No pain Medications Time Medication Route Dose Verified Delivered Reason Not es Effectiveness by by 15:55:21 0.9% NaCl I.V. 100 Diony Diony Per physician ml/hr Albert Price RN RN 15:55:57 Oxygen etCO2 2 l/min Diony Diony Per physician Nasal Albert Price cannula RN RN 15:56:08 Heparin Flush added 2 bags Diony Diony used for Bag to Albert Price procedure (1000units/500ml field RN RN NS) 15:56:20 Lidocaine 2% added 20ml Diony Diony for local to vial Lorigan Albert anesthetic RN RN 15:56:32 Radial Cocktail added 1 Diony Diony used for (Verapomil to syringe Lorigan Albert procedure 2mg/Nitro RN RN 400mcg/Heparin 1500units) 16:09:15 Versed I.V. 2 mg Diony Diony for sedation Albert Price RN RN 16:09:23 Fentanyl I.V. 100 mcg Diony Diony for sedation Albert Price RN RN 16:13:32 Radial Cocktail I.A. 1 Diony Davidson for (Verapomil syringe Albert Guadalupe MD vasodilation 2mg/Nitro RN 400mcg/Heparin 1500units) 16:14:22 Versed I.V. 1 mg Diony Diony for sedation Albert Price RN RN 16:20:51 Heparin Bolus I.V. 4000 Diony Diony for units Albert Price anticoagulation RN RN 16:23:09 Integrilin I.V. 6.2 ml Diony Diony for (Bolus 2mg/ml) Albert Price antiplatelet RN RN therapy 16:25:57 Integrilin wasted 3.8 ml Diony Diony to sharp's (Bolus 2mg/ml) Albert Price RN RN 16:28:04 Plavix P.O. 600 mg Diony Diony for Albert Price antiplatelet RN RN therapy Procedure Log Time Note 15:39:47 Time tracking: Regular hours (M-F 7:00 - 5:00) 15:39:50 Plan of Care:Hemodynamics will remain stable., Cardiac rhythm will remain stable., Comfort level will be maintained., Respiratory function will remain adequate., Patient/ family verbilizes understanding of procedure., Procedure tolerated without complication., Recovers from procedure without complications.. 15:39:53 Diony Price RN sent for patient. Start room use. 15:46:10 Patient received from Pre/Post Procedure Room to CCL 1 Alert and oriented. Tansferred to table in Supine position. 15:46:11 Warm blankets applied, and connie hugger turned on for patient comfort. 15:46:12 Correct patient and procedure confirmed by team. 15:46:14 Signed procedure consent form obtained from patient. 15:46:16 Full Disclosure recording started 15:55:11 ECG and BP/O2 sat monitors applied to patient. 15:55:11 Vital chart was started 15:55:21 0.9% NaCl 100 ml/hr I.V. was administered by Diony Price RN; Per physician; 15:55:48 Baseline sample Acquired. 15:55:52 Rhythm: sinus rhythm 15:55:57 Oxygen 2 l/min etCO2 Nasal cannula was administered by Diony Price RN; Per physician; 15:56:06 H&P Date Dictated: 01/15/2018 Within 30 days and on chart., H&P Addendum completed by physician on day of procedure. (MUST COMPLETE FOR ALL OUTPATIENTS). 15:56:07 Pre-procedure instructions explained to patient. 15:56:08 Heparin Flush Bag (1000units/500ml NS) 2 bags added to field was administered by Diony Price RN; used for procedure; 15:56:08 Pre-op teaching completed and patient verbalized understanding. 15:56:10 Family in waiting room. 15:56:12 Patient NPO since Midnight. 15:56:20 Lidocaine 2% 20ml vial added to field was administered by Diony Price RN; for local anesthetic; 15:56:28 Is patient on blood thinner?No 15:56:30 Patient diabetic? No. 15:56:32 Radial Cocktail (Verapomil 2mg/Nitro 400mcg/Heparin 1500units) 1 syringe added to field was administered by Diony Price RN; used for procedure; 15:56:34 Previous problem with sedation/anesthesia? No ? 15:56:35 Snore? Yes 15:56:36 Sleep apnea? No 15:56:37 Deviated septum? No 15:56:38 Opens mouth fully? Yes 15:56:38 Sticks out tongue? Yes 15:56:40 Airway obstruction? No ? 15:56:41 Dentures? No ? 15:56:44 Pre procedure: right dorsailis pedis pulse 2+ Normal; easily identifiable; not easily obliterated 15:56:46 Modified Brandon's test Ulnar < 7 seconds 15:56:47 Patient pain scale 0/10 ?. 15:56:51 IV patent on arrival in left hand with 0.9% NaCl at [facility]. 15:56:54 Lab results completed and on chart. 15:56:58 Right Radial & Right Groin area was prepped with chlora-prep and draped in sterile fashion 15:56:59 Alarms reviewed by R. N. 15:56:59 Sharps counted by scrub and verified by R.N. 15:57:03 Use device set Radial Dx or PCI 15:57:03 ACIST Syringe (48279) opened to sterile field. 15:57:04 Medline Cath Pack ([id number]) opened to sterile field. 15:57:05 Bag Decanter (2002S) opened to sterile field. 15:57:05 DIAGNOSTIC WIRE .035 260cm J wire (985137) opened to sterile field. 15:57:06 ACIST Hand Control (84873) opened to sterile field. 15:57:06 ACIST Manifold (34539) opened to sterile field. 15:57:08 MBrace Wrist Support ([id number]) opened to sterile field. 15:57:10 SHEATH 6Fr Prelude Radial ([id number]) opened to sterile field. 16:06:19 Zero performed for pressure channel P1 16:06:32 Final Timeout: patient, procedure, and site verified with staff and physician. All members of the team are in agreement. 16:06:35 Right Radial site verified by team. 16:06:38 Physical assessment completed. ASA score P 2 - A patient with mild systemic disease as per Davidson Guadalupe MD. 16:06:41 Sedation plan: IV Moderate Sedation Medication:Versed, Fentanyl 16:09:15 Versed 2 mg I.V. was administered by Diony Price RN; for sedation; 16:09:23 Fentanyl 100 mcg I.V. was administered by Diony Lorigan RN; for sedation; 16:12:24 Procedure started. 16:12:47 Local anesthetic to right radial artery with Lidocaine 2% by Davidson Guadalupe MD.INITIAL ACCESS ONLY 16:13:11 A 6 Fr Short sheath was inserted into the Right Radial artery 16:13:32 Radial Cocktail (Verapomil 2mg/Nitro 400mcg/Heparin 1500units) 1 syringe I.A. was administered by Davidson Guadalupe MD; for vasodilation; 16:13:45 A DIAGNOSTIC [place] 110cm 5 Fr catheter (060335) was advanced over the wire and used for LV Angiography. 16:14:22 Versed 1 mg I.V. was administered by Diony Price RN; for sedation; 16:14:45 LV gram done using BUENROSTRO 16:14:46 LV hemodynamics recorded. 16:14:52 Injector settings: Ml/sec: 5, Volume: 15, 16:14:59 EF : 60 % 16:15:10 A DIAGNOSTIC [place] 110cm 5 Fr catheter (354496) was advanced over the wire and used for Left Coronary Angiography. 16:16:06 Use device set TAU PCI 16:16:10 INFLATOR Merit BasixCompak (OI7932) opened to sterile field. 16:16:13 CHOICE PT Extra Support 182cm wire ([id number]) opened to sterile field. 16:16:20 A DIAGNOSTIC [place] 110cm 5 Fr catheter (448764) was advanced over the wire and used for Right Coronary Angiography. 16:16:33 GUIDE 6FR XBLAD 3.5 catheter (48772349) opened to sterile field. 16:16:42 Catheter removed. 16:16:49 Valencia [place] IVUS Catheter (94456T) opened to sterile field. 16:17:55 6 Fr XBLAD 3.5 guide catheter was inserted over the wire 16:19:02 CHOICE PT ES wire advanced. 16:19:38 IVUS catheter advanced over wire. 16:19:45 IVUS pass to Circ lesion performed. 16:20:51 Heparin Bolus 4000 units I.V. was administered by Diony Price RN; for anticoagulation; 16:21:10 IVUS catheter removed over wire. 16:22:02 GUIDE 6FR AR 2.0 catheter (BV4XE09) opened to sterile field. 16:22:29 Place stent Inflation Number: 1 A ANTHONY RX 3.5 x 22 stent ([id number]) was prepped and advanced across the Mid CX. The stent was deployed at 17 RODRÍGUEZ for 0:07 (min:sec). 16::54 Stent catheter was removed intact over wire. 16::55 Wire removed. 16::56 Guide catheter removed. 16:23:09 Integrilin (Bolus 2mg/ml) 6.2 ml I.V. was administered by Diony Price RN; for antiplatelet therapy; 16::58 6 Fr AR 2.0 guide catheter was inserted over the wire 16:25:27 CHOICE PT ES wire advanced. 16::49 IVUS catheter advanced over wire. 16::54 IVUS pass to RCA lesion performed. 16::57 Integrilin (Bolus 2mg/ml) 3.8 ml wasted was administered by Diony Price RN; to sharp's; 16::51 IVUS catheter removed over wire. 16::59 Wire removed. 16::00 Guide catheter removed. 16::09 Sheath removed intact; hemostasis achieved with Mechanical Compression to the Right Radial artery. 16:27:11 Procedure ended.(Physican Out) 16:27:36 TR BAND Standard ([id number]) opened to sterile field. 16:27:42 Fluoroscopy time 04.50 minutes. 16:27:46 Fluoroscopy dose: 425 mGy 16:27:46 Flurop Dose total: 425 16:28:04 Plavix 600 mg P.O. was administered by Diony Price RN; for antiplatelet therapy; 16::06 Contrast amount:Isovue 300 85ml. 16:28:07 Sharps counted by scrub and verified by R.N. 16:28:17 TR band inflated with 11cc of air. 16:28:18 Insertion/operative site no bleeding no hematoma. 16:28:24 Post right radial artery:stable, clean and dry 16:28:25 Post Procedure Pulses reassessed and unchanged 16::29 Post-procedure physical assessment completed. ASA score P 2 - A patient with mild systemic disease as per Davidson Guadalupe MD. 16:28:31 Post procedure rhythm: unchanged. 16:28:34 Estimated blood loss: 10 ml 16:28:35 Post procedure instruction explained to patient.Patient verbalizes understanding. 16:28:36 Patient needs reinforcement of post procedure teaching. 16:29:02 Procedure type changed to Cath procedure, Diagnostic procedure, LHC, LHC w/Coronaries, FFR/IVUS, Intra-Coronary IVUS Initial, Intra-Coronary IVUS Additional, Sedation Charges, Moderate Sedation up to 15 minutes, PCI procedure, Coronary Stent, Coronary Stent Initial 16:29:21 Procedure Complication : No complications 16:29:33 See physician's report for complete and final results. 16:29:59 Tegaderm 4 x 4 (1626W) opened to sterile field. 16:30:42 Procedure and supply charges have been captured, reviewed, submitted and are correct. 16:33:35 Vital chart was stopped 16:33:37 Report given to Pre/Post Procedure Room. 16:33:39 Patient transfered to Pre/Post Procedure Room with Stretcher. 16:33:48 Procedure ended. 16:33:48 Full Disclosure recording stopped 16:33:55 End room use (Document Last) Intervention Summary Intervention Notes Time ActionType Lesion and Equipment Used Action# Pressure Duration Attributes 16:22:29 Place stent Mid CX ANTHONY RX 3.5 x 1 17 00:07 22 stent ([id number]) Device Usage Item Name Manufacture Quantity Catalog Number Hospital Part Current Minimal Lot# / Charge Number Stock Stock Serial# Code ACIST Syringe Acist 1 00191 145644 961051 [id number] 20 (95528) Medical Systems Inc Medline Cath Cardinal 1 [id number] 492903 84051 100080 5 Pack Health ([id number]) Bag Decanter Microtek 1 580374 61899 289147 5 () Medical Inc. DIAGNOSTIC WIRE St Navjot 1 750355 459038 748190 774687 30 .035 260cm J wire (148203) ACIST Hand Acist 1 26505 466443 751360 797198 5 Control (05384) Medical Systems Inc ACIST Manifold Acist 1 40908 812774 781712 316252 5 (98100) Medical Systems Inc MBrace Wrist Advanced 1 140-0250-00 818091 70066 673444 5 Support Vascular ([id number]) Dynamics SHEATH 6Fr Merit 1 [id number] 021749 611563 555204 5 Prelude Radial Medical ([id number]) DIAGNOSTIC Terumo 1 40-3598 058885 514784 732077 5 [place] 110cm 5 Fr catheter (273683) INFLATOR Merit Merit 1 [id number] 722358 316796 724313 15 [facility] (PX9689) CHOICE PT Extra [place] 1 [id number] 167689 041925 659840 5 Support 182cm Scientific wire ([id number]) GUIDE 6FR XBLAD Cardinal 1 [id number] 843446 064897 105318 10 3.5 catheter Health (49888752) Valencia Valencia 1 64020T 425699 616607 460106 8 [place] IVUS Catheter (07861U) GUIDE 6FR AR Medtronic 1 [id number] 402606 55561 301168 1 2.0 catheter (RT4FE93) ANTHONY RX 3.5 x Medtronic 1 [id number] 975030 7447243 695577 5 [id number] 22 stent ([id number]) TR BAND Terumo 1 [id number] 335791 301454 376138 40 Standard ([id number]) Tegaderm 4 x 4 3M 1 1626W 704365 647434 983094 5 (1626W) Signature Audit [place] Stage Time Signature Unsigned Intra-Procedure 01/17/2018 Cierra 4:34:10 PM Counts RT(R) Signatures Monitor : Cierra Signature : Counts RT Date : Time : [facility] [address] [place] [address]
[~2018-01-17 10:00] MED LIST changes: +ASPIRIN325 MG PO; +ATIVAN0.5 MG PO; +NORMODYNE / TR100 MG PO; +PLAVIX75 MG PO; +PRAVACHOL20 MG PO; +PREVACID30 MG PO; +TOPROL XL25 MG PO
[2018-01-17] MEDS ORDERED: BACLOFEN10 MG PO (10:30)
[2018-01-17 11:00] VITALS: BP 133/81; Ht 165.1 cm; Wt 65.9 kg
[2018-01-17 11:04] LABS: BASOPHILS 0.2 % (0-2); EOSINOPHILS 2.8 % (0-7); HEMATOCRIT 42.3 % (36.0-48.0); IMMATURE GRANULOCYTES 0.2 % (0-5); LYMPHOCYTES 32.7 % (15-50); MCH 30.7 pg (26.0-34.0); MCHC 35.5 g/dL (31.0-37.0); MCV 86.7 fL (80.0-100.0); MEAN PLATELET VOLUME 9.6 fL (7.4-10.4); MONOCYTES 9.9 % (2-11); NEUTROPHILS 54.2 % (40-80); RBC 4.88 10x6/uL (4.00-5.40); RDW 13.4 % (11.5-14.5); WBC 8.3 10x3/uL (4.8-10.8)
[2018-01-17 11:11] LABS: PLATELET COUNT 218 10x3/uL (130-400)
[2018-01-17 11:44] LABS: CALC OSMOLALITY 275 mosm/kg (275-300); CALCIUM 8.8 mg/dL (8.5-10.1); CHLORIDE - SERUM 105 mmol/L (98-107); CREATININE - SERUM 0.7 mg/dL (0.6-1.3); GLUCOSE 94 mg/dL (74-106); SODIUM 139 mmol/L (136-145); UREA NITROGEN 8 mg/dL (7-18); eGFR NON AFRICAN AMERICAN > 90 mL/min (90-120)
[2018-01-17] MEDS ORDERED: PLAVIX75 MG PO (17:27)
== END 2018-01-17 20:30 | disposition home or self-care (01) ==
LOC: D.CATH 10:00
PROVIDERS: Internal Medicine Interventional Cardiology
DX: I25.119 Atherosclerotic heart disease of native coronary artery with unspecified angina pectoris (principal); I10 Essential (primary) hypertension; Z72.0 Tobacco use

== ENCOUNTER → 2018-01-22 14:11 | Outpatient (CLI) | payer BC ==
[2018-01-17 11:00] VITALS: BMI 24.1
[~2018-01-22 14:11] MED LIST changes: +BACLOFEN10 MG PO
== END | disposition home or self-care (01) ==
LOC: D.MRI 14:11
DX: R25.3 Fasciculation (principal); Z12.31 Encounter for screening mammogram for malignant neoplasm of breast

== ENCOUNTER → 2018-04-24 14:57 | Outpatient (CLI) | payer BC ==
[2018-01-17 11:00] VITALS: BMI 24.1
== END | disposition home or self-care (01) ==
LOC: D.MRI 14:57
DX: M25.511 Pain in right shoulder (principal)

== ENCOUNTER 2018-07-18 08:33 | Outpatient (CLI) | payer BC ==
[~2018-07-18] VITALS: Ht 165.1 cm; Wt 62.3 kg
--- NOTE | ~2018-07-18 | HEMODYNAMI ---
PATIENT:ANTHONY MANCINI MEDICAL RECORD: [id number] : 73 LOCATION:[facility] E ADMISSION DATE: 07/18/18 Generatedon:07/18/201811:01 Patient name: ANTHONY MANCINI Patient #: [id number] SSN: DO B: 1975 Date of study: 07/18/2018 Page: Of Hemodynamic Procedure Report Patient Data Patient Demographics Procedure consent was obtained First Name: ANTHONY Gender: Female Last Name: ADDIS : 1975 Middle Initial: ALBERT Age: 42 year(s) Patient #: [id number] Race: Unknown Additional ID: [id number] Contact details [address]: [address] [place] [address] State: [place] City: [place] Zip code: [address] Past Medical History Allergies Allergen Reaction Date Comments Reported Natural rubber 06/04/2017 and latex Other allergy 06/04/2017 dilaudid, lyrica Other allergy 07/18/2018 hydromorphone, latex, lyrica, Admission Admission Data Admission Date: 07/18/2018 Admission Time: 8:33 Procedure Procedure Types Cath Procedure Diagnostic Procedure C [facility] w/Coronaries FFR/IVUS Intra-Coronary IVUS Initial Intra-Coronary IVUS Additional Sedation Charges Moderate Sedation up to 15 minutes PCI Procedure Coronary Stent Coronary Stent Initial Procedure Description Procedure Date Procedure Date: 07/18/2018 Procedure Start Time: 10:39 Procedure End Time: 11:01 Procedure Staff Name Function Davidson Guadalupe MD Performing Physician Richa Martin RN Nurse Vipul Yang RN Gas Station Manager Cierra Counts RT Monitor Dionne Jesus RT Scrub Procedure Data Cath Procedure Fluoroscopy Diagnostic fluoroscopy Total fluoroscopy Time: 5.3 time: 5.3 min min Diagnostic fluoroscopy Total fluoroscopy dose: 363 dose: 363 mGy mGy Contrast Material Contrast Material Type Amount (ml) Isovue 300 64 Entry Location Entry Primary Successful Side Size Upsize Upsize Entry Closure Ervin ccessful Closure Location (Fr) 1 (Fr) 2 (Fr) Remarks Device Remarks Radial Right 6 Fr Mechanical artery Short Compression Estimated blood loss: 10 ml Diagnostic catheters Device Type Used For End Catheter Placement DIAGNOSTIC [place] 110cm 5 LV Angiography Fr catheter ([id number]) DIAGNOSTIC [place] 110cm 5 Left Coronary Fr catheter ([id number]) Angiography DIAGNOSTIC [place] 110cm 5 Right Coronary Fr catheter (745385) Angiography Procedure Complications No complications Procedure Medications Medication Administration Route Dosage 0.9% NaCl I.V. 100 ml/hr Oxygen etCO2 Nasal cannula 2 l/min Lidocaine 2% added to field 20 Heparin Flush Bag added to field 2 bags (1000units/500ml NS) Radial Cocktail added to field 1 syringe (Verapomil 2mg/Nitro 400mcg/Heparin 1500units) Versed I.V. 2 mg Fentanyl I.V. 50 mcg Versed I.V. 2 mg Fentanyl I.V. 50 mcg Heparin Bolus I.V. 4000 units Versed I.V. 2 mg Fentanyl I.V. 50 mcg Hemodynamics Rest Heart Rate: 71 (bpm) Snapshots Pre Cath Intra NCS Post Cath Vital Signs Time Heart Resp SPO2 etCO2 NIBP (mmHg) Rhythm Pain Sedation Rate (ipm) (%) (mmHg) Status Level (bpm) 10:28:14 65 13 97 35 124/83(103) NSR 0 (11) 10(A) , No pain 10:32:19 66 14 97 36 124/82(98) NSR 0 (11) 10(A) , No pain 10:36:23 71 14 97 25.5 116/84(98) NSR 0 (11) 10(A) , No pain 10:40:27 75 15 98 31.5 114/73(88) NSR 0 (11) 10(A) , No pain 10:44:33 78 13 99 41 106/67(90) NSR 0 (11) 9(A) , No pain 10:48:36 79 11 97 35.2 106/64(84) NSR 0 (11) 10(A) , No pain 10:52:38 75 14 96 35 113/74(94) NSR 0 (11) 9(A) , No pain 10:56:44 76 17 96 35.2 105/71(85) NSR 0 (11) 10(A) , No pain 11:00:48 77 10 94 0 105/65(92) NSR 0 (11) 10(A) , No pain Medications Time Medication Route Dose Verified Delivered Reason Not es Effectiveness by by 10:27:26 0.9% NaCl I.V. 100 Davidson Richa used for ml/hr Collins Martin mica miner blasting 10:27:34 Oxygen etCO2 2 l/min Davidson Richa used for Nasal Collins Martin procedure cannula RN 10:27:40 Lidocaine 2% added 20ml Davidson Davidson for local to vial Collins Guadalupe MD anesthetic field 10:27:45 Heparin Flush added 2 bags Davidson Davidson used for Bag to Collins Guadalupe MD procedure (1000units/500ml field NS) 10:27:50 Radial Cocktail added 1 Davidson Davidson used for (Verapomil to syringe Collins Guadalupe MD procedure 2mg/Nitro field 400mcg/Heparin 1500units) 10:36:19 Versed I.V. 2 mg Davidson Richa for sedation Collins Martin RN 10:36:25 Fentanyl I.V. 50 mcg Davidson Richa for sedation Collins Martin RN 10:41:07 Versed I.V. 2 mg Davidson Richa for sedation Clolins Martin RN 10:41:11 Fentanyl I.V. 50 mcg Davidson Richa for sedation Collins Martin RN 10:50:38 Versed I.V. 2 mg Davidson Richa for sedation Collins Martin RN 10:50:44 Fentanyl I.V. 50 mcg Davidson Richa for sedation Collins Martin RN 10:52:19 Heparin Bolus I.V. 4000 Davidson Richa for flor ified units Collins Martin anticoagulation with Dr. LUISA Guadalupe Procedure Log Time Note 10:14:11 Vipul Yang RN sent for patient. Start room use. 10:14:12 Time tracking: Regular hours (M-F 7:00 - 5:00) 10:14:15 Plan of Care:Hemodynamics will remain stable., Cardiac rhythm will remain stable., Comfort level will be maintained., Respiratory function will remain adequate., Patient/ family verbilizes understanding of procedure., Procedure tolerated without complication., Recovers from procedure without complications.. 10:22:47 Signed procedure consent form obtained from patient. 10:22:51 Patient received from Pre/Post Procedure Room to CCL 1 Alert and oriented. Tansferred to table in Supine position. 10:22:51 Warm blankets applied, and connie hugger turned on for patient comfort. 10:22:52 Correct patient and procedure confirmed by team. 10:22:53 ECG and BP/O2 sat monitors applied to patient. 10:27:11 Vital chart was started 10:27:26 0.9% NaCl 100 ml/hr I.V. was administered by Richa Martin RN; used for procedure; 10:27:34 Oxygen 2 l/min etCO2 Nasal cannula was administered by Richa Martin RN; used for procedure; 10:27:40 Lidocaine 2% 20ml vial added to field was administered by Davidson Guadalupe MD; for local anesthetic; 10:27:45 Heparin Flush Bag (1000units/500ml NS) 2 bags added to field was administered by Davidson Guadalupe MD; used for procedure; 10:27:50 Radial Cocktail (Verapomil 2mg/Nitro 400mcg/Heparin 1500units) 1 syringe added to field was administered by Davidson Guadalupe MD; used for procedure; 10:32:14 Rhythm: sinus rhythm 10:32:16 Full Disclosure recording started 10:32:24 H&P Date Dictated: 07/16/2018 Within 30 days and on chart., H&P Addendum completed by physician on day of procedure. (MUST COMPLETE FOR ALL OUTPATIENTS). 10:32:27 Pre-procedure instructions explained to patient. 10:32:27 Pre-op teaching completed and patient verbalized understanding. 10:32:30 Family in patients room. 10:32:31 Patient NPO since Midnight. 10:33:06 Patient allergic to Other allergyhydromorphone, latex, lyrica, 10:33:08 Is the patient allergic to Iodine/contrast media? No. 10:33:12 Is patient on blood thinner?Yes 10:33:15 ACC The patient was administered the following blood thiners within the last 24 hours: ACCPlavix 10:33:18 Patient diabetic? No. 10:33:21 Previous problem with sedation/anesthesia? No ? 10:33:21 Snore? Yes 10:33:23 Sleep apnea? No 10:33:24 Deviated septum? No 10:33:24 Opens mouth fully? Yes 10:33:25 Sticks out tongue? Yes 10:33:27 Airway obstruction? No ? 10:33:29 Dentures? No ? 10:33:32 Pre procedure: right dorsailis pedis pulse 2+ Normal; easily identifiable; not easily obliterated 10:33:35 Modified Brandon's test Ulnar < 7 seconds 10:33:38 Patient pain scale 0/10 ?. 10:33:44 IV patent on arrival in left forearm with 0.9% NaCl at [facility]. 10:33:46 Lab results completed and on chart. 10:33:52 Right Radial & Right Groin area was prepped with chlora-prep and draped in sterile fashion 10:33:53 Alarms reviewed by R. N. 10:33:53 Sharps counted by scrub and verified by R.N. 10:33:55 Use device set Radial Dx or PCI 10:33:56 ACIST Syringe (79784) opened to sterile field. 10:33:57 Medline Cath Pack ([id number]) opened to sterile field. 10:33:57 Bag Decanter (2002S) opened to sterile field. 10:33:57 DIAGNOSTIC WIRE .035 260cm J wire (787701) opened to sterile field. 10:33:58 ACIST Hand Control (54251) opened to sterile field. 10:33:58 ACIST Manifold (27967) opened to sterile field. 10:33:59 Tegaderm 4 x 4 (1626W) opened to sterile field. 10:34:00 MBrace Wrist Support ([id number]) opened to sterile field. 10:34:01 SHEATH 6FR Slender (58-1060) opened to sterile field. 10:35:11 Baseline sample Acquired. 10:35:42 Final Timeout: patient, procedure, and site verified with staff and physician. All members of the team are in agreement. 10:35:45 Right Radial site verified by team. 10:35:49 Physical assessment completed. ASA score P 2 - A patient with mild systemic disease as per Davidson Guadalupe MD. 10:35:53 Sedation plan: IV Moderate Sedation Medication:Versed, Fentanyl 10:36:19 Versed 2 mg I.V. was administered by Richa Martin RN; for sedation; 10:36:25 Fentanyl 50 mcg I.V. was administered by Richa Martin RN; for sedation; 10:38:54 Zero performed for pressure channel P1 10:38:58 Procedure started. 10:39:05 Local anesthetic to right radial artery with Lidocaine 2% by Davidson Guadalupe MD.INITIAL ACCESS ONLY 10:39:32 A 6 Fr Short sheath was inserted into the Right Radial artery 10:40:33 A DIAGNOSTIC [place] 110cm 5 Fr catheter (489797) was advanced over the wire and used for LV Angiography. 10:41:04 LV gram done using BUENROSTRO 10:41:07 Versed 2 mg I.V. was administered by Richa Martin RN; for sedation; 10:41:08 EF : 60 % 10:41:11 Fentanyl 50 mcg I.V. was administered by Richa Martin RN; for sedation; 10:41:11 Injector settings: Ml/sec: 5, Volume: 15, 10:41:27 A DIAGNOSTIC [place] 110cm 5 Fr catheter ([id number]) was advanced over the wire and used for Left Coronary Angiography. 10:42:55 A DIAGNOSTIC [place] 110cm 5 Fr catheter (031565) was advanced over the wire and used for Right Coronary Angiography. 10:44:59 Catheter removed. 10:47:13 6 Fr AR 1.0 guide catheter was inserted over the wire 10:47:21 Use device set [facility] PCI 10:47:31 INFLATOR Merit BasixCompak (GO1143) opened to sterile field. 10:47:35 CHOICE PT Extra Support 182cm wire ([id number]) opened to sterile field. 10:47:39 GUIDE 6FR AR 1.0 catheter (IJ0YZ99) opened to sterile field. 10:48:07 CHOICE PT ES wire advanced. 10:48:35 IVUS catheter advanced over wire. 10:49:11 IVUS pass to RCA lesion performed. 10:49:15 IVUS catheter removed over wire. 10:49:22 Wire removed. 10:49:22 Guide catheter removed. 10:49:29 6 Fr XB 3.5 guide catheter was inserted over the wire 10:49:41 GUIDE 6FR XB 3.5 catheter ([id number]) opened to sterile field. 10:50:38 Versed 2 mg I.V. was administered by Richa Martin RN; for sedation; 10:50:44 Fentanyl 50 mcg I.V. was administered by Richa Martin RN; for sedation; 10:51:21 CHOICE PT ES wire advanced. 10:52:19 Heparin Bolus 4000 units I.V. was administered by Richa Martin RN; for anticoagulation; verified with Dr. Guadalupe 10:55:13 IVUS catheter advanced over wire. 10:55:15 IVUS pass to Circ lesion performed. 10:55:22 IVUS catheter removed over wire. 10:56:05 Place stent Inflation Number: 1 A ANTHONY RX 3.5 x 15 stent ([id number]) was prepped and advanced across the Mid CX. The stent was deployed at 17 RODRÍGUEZ for 0:02 (min:sec). 10:56:21 Stent catheter was removed intact over wire. 10:56:21 Wire removed. 10:56:23 Guide catheter removed. 10:56:34 Sheath removed intact; hemostasis achieved with Mechanical Compression to the Right Radial artery. 10:56:35 Procedure ended.(Physican Out) 10:57:50 TR BAND Standard ([id number]) opened to sterile field. 10:58:55 Fluoroscopy time 05.30 minutes. 10:58:59 Flurop Dose total: 363 10:58:59 Fluoroscopy dose: 363 mGy 10:59:03 Contrast amount:Isovue 300 64ml. 10:59:05 Sharps counted by scrub and verified by R.N. 10:59:07 TR band inflated with 12cc of air. 10:59:08 Insertion/operative site no bleeding no hematoma. 10:59:14 Post right radial artery:stable, clean and dry 10:59:15 Post Procedure Pulses reassessed and unchanged 10:59:18 Post-procedure physical assessment completed. ASA score P 2 - A patient with mild systemic disease as per Davidson Guadalupe MD. 10:59:19 Post procedure rhythm: unchanged. 10:59:22 Estimated blood loss: 10 ml 10:59:23 Post procedure instruction explained to patient.Patient verbalizes understanding. 10:59:25 Patient needs reinforcement of post procedure teaching. 10:59:49 Procedure type changed to Cath procedure, Diagnostic procedure, LHC, LHC w/Coronaries, FFR/IVUS, Intra-Coronary IVUS Initial, Intra-Coronary IVUS Additional, Sedation Charges, Moderate Sedation up to 15 minutes, PCI procedure, Coronary Stent, Coronary Stent Initial 10:59:55 Procedure Complication : No complications 10:59:56 See physician's report for complete and final results. 11:00:33 [place] IVUS Catheter (47501L) opened to sterile field. 11:00:58 Procedure and supply charges have been captured, reviewed, submitted and are correct. 11:00:58 Vital chart was stopped 11:01:01 Report given to Pre/Post Procedure Room. 11:01:12 Patient transfered to Pre/Post Procedure Room with Stretcher. 11:01:15 Procedure ended. 11:01:15 Full Disclosure recording stopped 11:01:24 End room use (Document Last) Intervention Summary Intervention Notes Time ActionType Lesion and Equipment Used Action# Pressure Duration Attributes 10:56:05 Place stent Mid CX ANTHONY RX 3.5 x 1 17 00:02 15 stent ([id number]) Device Usage Item Name Manufacture Quantity Catalog Number Hospital Part Current M inimal Lot# / Charge Number Stock Stock Serial# Code ACIST Syringe Acist 1 04171 [id number] 947960 942429 2 0 (53587) Medical Systems Inc Medline Cath Medline 1 [id number] 889156 95895 991297 5 Pack ([id number]) Bag Decanter Microtek 1 2001S 772217 56116 130087 5 (2001S) Medical Inc. DIAGNOSTIC St Navjot 1 975183 889586 384952 016218 3 0 WIRE .035 260cm J wire (186222) ACIST Hand Acist 1 31377 675367 614001 459759 5 Control Medical (29582) Systems Inc ACIST Manifold Acist 1 21982 403770 349471 325353 5 (65834) Medical Systems Inc Tegaderm 4 x 4 3M 1 1626W 146819 313717 986473 5 (1626W) MBrace Wrist Advanced 1 140-0250-00 365235 40722 213664 5 Support Vascular ([id number]) Dynamics SHEATH 6FR Terumo 1 [id number] 026143 659820 868068 5 Slender (80-1060) DIAGNOSTIC Terumo 1 40-7693 480111 176342 746124 5 [place] 110cm 5 Fr catheter (527139) INFLATOR Merit Merit 1 UE3538 748322 690103 372729 1 5 BasixCompaCycloMedia Technology [facility] (RC3117) CHOICE PT Swink 1 [id number] 944933 142121 433505 5 Extra Support Scientific 182cm wire ([id number]) GUIDE 6FR AR Medtronic 1 [id number] 272361 26984 523952 1 1.0 catheter ([id number]) GUIDE 6FR XB Cardinal 1 [id number] 320028 242079 624851 2 3.5 catheter Health (02971677) ANTHONY RX 3.5 x Medtronic 1 [id number] 235530 3009641 510539 5 [id number] 15 stent ([id number]) TR BAND Terumo 1 [id number] 840158 308702 198869 4 0 Standard ([id number]) [place] 1 [id number] 499708 255763 254862 8 [place] IVUS Catheter (22593A) Signature Audit Iva Stage Time Signature Unsigned Intra-Procedure 07/18/2018 Cierra 11:01:33 AM Counts RT(R) Signatures Monitor : Cierra Signature : Counts RT Date : Time : [place] [id number] [place] [address]
[2018-07-18] MEDS ORDERED: KLONOPIN0.5 MG PO (08:48)
[2018-07-18 09:01] VITALS: BP 136/88; Ht 165.1 cm; Wt 62.3 kg
[2018-07-18 09:06] LABS: BASOPHILS 0.2 % (0-2); EOSINOPHILS 2.3 % (0-7); HEMATOCRIT 42.9 % (36.0-48.0); HEMOGLOBIN 15.3 g/dL (12-16); IMMATURE GRANULOCYTES 0.3 % (0-5); LYMPHOCYTES 33.1 % (15-50); MCH 31.5 pg (26.0-34.0); MCHC 35.7 g/dL (31.0-37.0); MCV 88.3 fL (80.0-100.0); MEAN PLATELET VOLUME 9.4 fL (7.4-10.4); MONOCYTES 8.6 % (2-11); NEUTROPHILS 55.5 % (40-80); PLATELET COUNT 244 10x3/uL (130-400); RBC 4.86 10x6/uL (4.00-5.40); RDW 13.3 % (11.5-14.5); WBC 10.7 10x3/uL (4.8-10.8)
[2018-07-18 09:18] LABS: CALC OSMOLALITY 278 mosm/kg (275-300); CALCIUM 8.9 mg/dL (8.5-10.1); CHLORIDE - SERUM 106 mmol/L (98-107); CREATININE - SERUM 0.8 mg/dL (0.6-1.3); GLUCOSE 100 mg/dL (74-106); POTASSIUM - SERUM 3.8 mmol/L (3.5-5.1); SODIUM 141 mmol/L (136-145); UREA NITROGEN 7 mg/dL (7-18); eGFR NON AFRICAN AMERICAN 83 mL/min (90-120)
--- NOTE | 2018-07-18 11:20 | NUR ---
RECIEVED TO ROOM VIA STRETCHER FROM SUPERVISOR SEWER SYSTEM WITH TR BAND TO R/WRIST CDI NO BLEEDING OR HEMATOMA NOTED. PATIENT CONNECTED TO MONITOR FOR OBSERVATION WITH HR 73 BP102/63 CALL LIGHT IN REACH WITH FAMILY AT BEDSIDE
--- NOTE | 2018-07-18 11:26 | NUR ---
PATIENT RESTING QUIETLY WITH VSS. TR BAND TO R/WRIST IS CDI NO BLEEDING NOTED
--- NOTE | 2018-07-18 11:45 | NUR ---
PATIENT CONTINUES TO REST WITH NO DISTRESS VSS AND TR BAND TO R/WRIST REMAINS CDI. FAMILY IS PRESENT IN ROOM
--- NOTE | 2018-07-18 12:10 | NUR ---
REPOSITIONED TO SITTING WITH HOB UP 30 FOR COMFORT. PATIENT DENEIED PAIN AT THIS TIME. TR BAND TO R/WRIST IS CDI NO BLEEDING OR HEMATOMA NOTED. SANDWICH AND SODA TO BEDSIDE WITH NAUSEA DENIED
--- NOTE | 2018-07-18 12:22 | NUR ---
PATIENT DENIED NEEDS AT THIS TIME. TR BAND IS CDI WITH R/HAND WARM TO TOUCH. CAP REFILL BRISK
--- NOTE | 2018-07-18 12:42 | NUR ---
DR MASON PRESENT IN ROOM WITH PATIENT AND FAMILY. PATIENT DENIED PAIN AND TR BAND IS CDI
--- NOTE | 2018-07-18 13:10 | NUR ---
SITTING WITH HOB UP 30 DEGREES EATING LUNCH NAUSEA DENIED TR BAND REMAINS CDI
--- NOTE | 2018-07-18 13:43 | NUR ---
TR BAND REMAINS CDI WITH NO BLEEDING OR HEMATOMA NOTED. VSS AND CHEST PAIN IS DENIED. R/HAND IS WARM TO TOUCH WITH CAP REFILL BRISK
--- NOTE | 2018-07-18 13:55 | NUR ---
PT SLEEPING, RESP WITH EASE. TR BAND IS CDI, FINGERS WARM AND CAP REFILL IS BRISK. VSS.
--- NOTE | 2018-07-18 14:13 | NUR ---
3 CC OF AIR WEANED FROM TR BAND WITH NO BLEEDING OR HEMATOMA NOTED.
--- NOTE | 2018-07-18 14:25 | NUR ---
3 CC OF AIR WEANED FROM TR BAND WITH NO BLEEDING NOTED. FINGERS WARM AND CAP REFILL S BRISK. PT DENIES ANY C/O. AT BEDSIDE.
--- NOTE | 2018-07-18 14:51 | NUR ---
ALL AIR HAS BEEN WEANED FROM TR BAND WITH NO BLEEDING NOTED. IV DC'D WITH CATH INTACT. PT DRESSING FOR DC TO HOME WITH ASSIST.
--- NOTE | 2018-07-18 15:22 | NUR ---
1455 TR BAND REMVOED AND 2X2, TEGADERM APPLIED TO SITE. WRIST IMMOBILIZER IN PLACE. PT IS ALERT AND DENIES ANY C/O CHEST PAIN OR NAUSEA. IV DC'D WITH CATH INTACT AND PT IS DRESING FOR DC WITH ASSIT. 1515 PT IS DRESSED FOR DC TO HOME. PT AND VERBALIZE UNDERSTANDING OF DC INSTRUCTIONS. 1520 ASSISTED PT TO THE BATHROOM VIA WC AND PT VOIDED QS. DRESSING REMAINS CDI AND FINGERS WARM, PULSES PALPABLE. PT ESCORTED TO PRIVATE AUTO VIA WC BY NURSE WITH DRIVING HER HOME.
--- NOTE | 2018-07-22 10:22 | OP ---
PATIENT NAME: ANTHONY MANCINI MEDICAL RECORD: [id number] :73 LOCATION:D.CAT ADMISSION DATE: SURGEON: GUADALUPE MASON MD DATE OF OPERATION: 07/18/2018 PROCEDURES: 1. PTCA and stent of left circumflex. 2. Intravascular ultrasound of the left circumflex. 3. Intravascular ultrasound of RCA. 4. Left heart catheterization. 5. Selective coronary angiography. 6. Left ventriculogram. INDICATION: Angina and coronary artery disease. PROCEDURE IN DETAIL: After informed consent was obtained and after a detailed explanation of the risks, benefits as well as alternative therapies, the patient elected to proceed with angiogram and angioplasty. The right radial area was prepped and draped in normal sterile fashion. Right radial artery was cannulated via modified Seldinger technique with placement of 6-Czech sheath. All catheters exchanged through this sheath. FINDINGS: Left ventriculogram was performed in standard 30-degree BUENROSTRO view, reveals good cardiac wall motion throughout all segments. Overall ejection fraction estimated 60%. SELECTIVE CORONARY ANGIOGRAPHY: 1. Left main is with no significant angiographic disease. 2. Left anterior descending has mild irregularities, no flow-limiting stenosis. 3. The left circumflex has 70% stenosis proximal to the previously placed stents confirmed by intravascular ultrasound. 4. Right coronary has mild irregularities, confirmed by intravascular ultrasound, no flow-limiting stenosis. PTCA AND STENT OF THE LEFT CIRCUMFLEX: The stent used was a 3.5 x 15-mm Levels. Result was 0% residual stenosis. OVERALL IMPRESSION: Successful PTCA and stent of the left circumflex going from 70% initial stenosis to 0% residual. TRANSINT:[id number] Voice Confirmation ID: [id number] DOCUMENT ID: [id number] GUADALUPE MASNO MD at 1022 CC: [id number] DICTATION DATE: 07/18/18 1100 POSTDOCTORAL RESEARCH ASSOCIATE: 07/18/18 1215 [facility] CLI 07/18/[address] [id number]
== END 2018-07-18 15:20 | disposition home or self-care (01) ==
LOC: D.CATH 08:33
PROVIDERS: Internal Medicine Interventional Cardiology
DX: I25.110 Atherosclerotic heart disease of native coronary artery with unstable angina pectoris (principal)

== ENCOUNTER → 2018-12-05 13:07 | Outpatient (CLI) | payer BC ==
[2018-07-18 09:01] VITALS: BMI 22.8
[~2018-12-05 13:07] MED LIST changes: +KLONOPIN0.5 MG PO
== END | disposition home or self-care (01) ==
LOC: D.RAD 13:07
PROVIDERS: ATTEND Orthopaedic Surgery
DX: S49.91XD Unspecified injury of right shoulder and upper arm, subsequent encounter (principal)

== ENCOUNTER 2018-12-18 08:00 | Outpatient (CLI) | payer BC ==
[2018-07-18 09:01] VITALS: BMI 22.8
[2018-12-18 12:19] LABS: HEMATOCRIT 40.8 % (36.0-48.0); HEMOGLOBIN 14.5 g/dL (12-16); MCH 30.4 pg (26.0-34.0); MCHC 35.5 g/dL (31.0-37.0); MCV 85.5 fL (80.0-100.0); MEAN PLATELET VOLUME 8.8 fL (7.4-10.4); RBC 4.77 10x6/uL (4.00-5.40); RDW 13.1 % (11.5-14.5); WBC 8.4 10x3/uL (4.8-10.8)
[2018-12-18 12:29] LABS: APTT 28.8 SECONDS (22.8-39.4); PROTIME 12.7 SECONDS (11.6-15.0)
== END 2018-12-18 08:01 | disposition home or self-care (01) ==
LOC: D.OPS 08:00 → EDSTATUS 12-19 12:00 → D.PAN 12-19 12:00 → D.OPS 12-19 12:00
PROVIDERS: Anesthesiology; ATTEND Orthopaedic Surgery
DX: M75.111 Incomplete rotator cuff tear or rupture of right shoulder, not specified as traumatic (principal)

== ENCOUNTER → 2019-01-07 12:37 | Outpatient (CLI) | payer BC ==
[2018-07-18 09:01] VITALS: BMI 22.8
--- NOTE | 2019-01-12 18:38 | EC ---
PATIENT:ANTHONY MANCINI DATE OF SERVICE: 01/07/19 SEX: F MEDICAL RECORD: [id number] DATE OF : 73 [facility] AGE OF PATIENT: 43 ADMISSION DATE: 01/07/19 REFERRING PHYSICIAN: INTERPRETING PHYSICIAN: GUADALUPE GUADALUPE MD ECHOCARDIOGRAM REPORT ECHO CHARGES 4 ECHO COMPLETE Date: 01/07/19 CLINICAL DIAGNOSIS: SOB/MR H/O CAD/HTN ECHOCARDIOGRAPHIC MEASUREMENTS (adult normal given) AC root (d.<3.7cm) 2.5 cm LV Septum d (<1.2 cm> 1.1 cm Valve Excursion 1.7 cm LV Septum (systole) 1.5 cm Left Atria (s.<4.0cm> 2.7 cm LVPW d(<1.2cm) 1.2 cm RV (d.<2.3cm) 2.4 cm LVPW (sytole) 1.4 cm LV diastole(<5.6CM) 5.0 cm MV E-F(>70mm/sec) cm LV systole 3.2 cm LVOT Diameter 1.8 cm MV exc.(>10mm) cm Est.ejection fraction (50-75%) % DOPPLER: LVIT cm/sec A 68.0 cm/sec E 84.0 cm/sec LA cm/sec RVSP 34.0 mmHg LVOT 105 cm/sec AOP1/2T m/s Asc. Ao 138 cm/sec RVOT 72.0 cm/sec RA cm/sec PA 82.0 cm/sec AV Gradient Peak 7.6 mmHg AV Mean 3.5 mmHg AV Area 2.0 cm MV Gradient Peak 3.7 mmHg MV Mean 1.8 mmHg MV Area cm COMMENTS: OP - HC Narcotics Agent: Randal FRAUSTO CRABTREE Manager Talent Acquisition: 1 Dr. Guadalupe TAPE# PACS Pericardial Effusion N DATE OF SERVICE: 01/07/2019 FINDINGS: 1. Left ventricular chamber size is within normal limits. Left ventricular systolic function is normal. Overall ejection fraction is estimated at 55% to 60%. 2. Left atrium, right atrium, and right ventricular chamber sizes are within normal limit. 3. Valvular structures have normal structure and motion. 4. Doppler interrogation reveals trace aortic insufficiency, trace mitral ECHOCARDIOGRAM REPORT [id number] ANTHONY MANCINI regurgitation, and trace tricuspid regurgitation. No other valvular insufficiency or stenosis. 5. No evidence of pericardial effusion or left ventricular thrombus. TRANSINT:[id number] Voice Confirmation ID: [id number] DOCUMENT ID: [id number] GUADALUPE GUADALUPE MD at 1838 CC: [id number] DICTATION DATE: 01/07/191711 HOUSING INSPECTOR: 01/07/191913 DEP CLI 01/07/19 [facility] [address] [place] [address]
== END | disposition home or self-care (01) ==
LOC: D.HCCARDIO 12:37
PROVIDERS: ATTEND Internal Medicine Interventional Cardiology
DX: R01.1 Cardiac murmur, unspecified (principal)

== ENCOUNTER → 2019-01-22 09:29 | Outpatient (CLI) | payer BC ==
[2018-07-18 09:01] VITALS: BMI 22.8
--- NOTE | 2019-02-03 09:52 | ST ---
PATIENT:ANTHONY MANCINI MEDICAL RECORD: [id number] SEX: F LOCATION:[facility] ORDER #: ADMISSION DATE: 01/22/19 AGE OF PATIENT: 43 REFERRING PHYSICIAN: INTERPRETING PHYSICIAN: GUADALUPE MASON MD DATE OF SERVICE: 01/22/2019 NUCLEAR STRESS TEST INDICATION: Angina, shortness of breath, dyspnea on exertion, coronary artery disease, hypertension. She was exercised on standard Lexiscan protocol with 31 mCi of sestamibi injected at peak stress, 10 mCi were used previously for rest images. FINDINGS: Gated SPECT reveals preserved ejection fraction at 63% with good wall motion and thickening and brightening throughout all segments. SPECT imaging Cardiolite was used as myocardial perfusion agent. There is reversibility in the lateral segments as well as apex this includes the basal, mid, apical lateral segment as well as the apex itself. The degree of reversibility is mild to moderate. The amount of myocardium involved is moderate. OVERALL IMPRESSION: 1. This is an intermediate risk abnormal nuclear stress test for reversible ischemia throughout the lateral and apical segments. 2. Gated SPECT reveals preserved ejection fraction at 63%. In this patient with ongoing symptomatology, the current scan does suggest the presence of hemodynamically significant coronary artery disease. TRANSINT:[id number] Voice Confirmation ID: [id number] DOCUMENT ID: [id number] GUADALUPE MASON MD at 0952 CC: BUSTER DAVIS MD [id number] DICTATION DATE: 01/23/19 1426 GLUE MAKER BONE: 01/24/19 0304 DEP CLI 01/22/19 [place] [id number] [place] [id number]
== END | disposition home or self-care (01) ==
LOC: D.HCCARDIO 09:29
PROVIDERS: ATTEND Internal Medicine Interventional Cardiology
DX: I20.9 Angina pectoris, unspecified (principal); R06.00 Dyspnea, unspecified; I25.10 Atherosclerotic heart disease of native coronary artery without angina pectoris; I10 Essential (primary) hypertension

== ENCOUNTER 2019-02-02 14:23 | Outpatient (CLI) | payer BC ==
[~2019-02-02] VITALS: Ht 165.1 cm; Wt 62.7 kg
--- NOTE | ~2019-02-02 | HEMODYNAMI ---
PATIENT:ANTHONY MANCINI MEDICAL RECORD: [id number] : 73 LOCATION:[facility] ADMISSION DATE: 02/02/19 Generatedon:02/02/201911:19 Patient name: ANTHONY MANCINI Patient #: [id number] SSN: [id number] : 1975 Date of study: 02/02/2019 Page: Of Hemodynamic Procedure Report Patient Data Patient Demographics Procedure consent was obtained First Name: ANTHONY Gender: Female Last Name: ADDIS : 1975 Middle Initial: ALBERT Age: 43 year(s) Patient #: [id number] Race: SSN: [id number] Additional ID: [id number] Contact details Address: [address] [place] [address] State: [place] City: [place] Zip code: [address] Past Medical History Allergies Allergen Reaction Date Comments Reported Natural rubber 06/04/2017 and latex Other allergy 06/04/2017 dilaudid, lyrica Other allergy 07/18/2018 hydromorphone, latex, lyrica, Admission Admission Data Admission Date: 02/02/2019 Admission Time: 10:30 Arrival Date: 02/02/2019 Arrival Time: 10:30 Admit Source: Other Insurance Payor: Private health insurance Height (in.): 64.96 BSA: 1.69 (m2) Height (cm.): 165 BMI: 23.14 (kg/m2) Weight (lbs.): 138.89 Weight (kg.): 63 Lab Results Lab Result Date: 02/02/2019 Lab Result Time: 0:00 Biochemistry Name Units Result Min Max BUN mg/dl 8 --(*---)-- 7 18 Creatinine mg/dl 0.8 --(-*--)-- 0.6 1.3 CBC Name Units Result Min Max Hemoglobin g/dl 15.4 --(-*--)-- 13.5 17.5 Procedure Procedure Types Cath Procedure Diagnostic Procedure [facility] w/Coronaries FFR/IVUS FFR Initial Sedation Charges Moderate Sedation up to 15 minutes Procedure Description Procedure Date Procedure Date: 02/02/2019 Procedure Start Time: 11:05 Procedure End Time: 11:18 Procedure Staff Name Function Davidson Guadalupe MD Performing Physician Ana Dunne RT Monitor Clinton Castillo RT Scrub Eliana Peters RT Scrub Fadi Henley RN Nurse Procedure Data Cath Procedure Fluoroscopy Diagnostic fluoroscopy Total fluoroscopy Time: 1.8 time: 1.8 min min Diagnostic fluoroscopy Total fluoroscopy dose: 251 dose: 251 mGy mGy Contrast Material Contrast Material Type Amount (ml) Isovue 300 51 Entry Location Entry Primary Successful Side Size Upsize Upsize Entry Closure Ervin ccessful Closure Location (Fr) 1 (Fr) 2 (Fr) Remarks Device Remarks Radial Right 6 Fr Mechanical artery Short Compression Estimated blood loss: 10 ml Diagnostic catheters Device Type Used For End Catheter Placement DIAGNOSTIC [place] 110cm 5 Procedure Fr catheter (012330) Procedure Complications No complications Procedure Medications Medication Administration Route Dosage Oxygen etCO2 Nasal cannula 2 l/min Lidocaine 2% added to field 20 Heparin Flush Bag added to field 2 bags (1000units/500ml NS) 0.9% NaCl I.V. 100 ml/hr Radial Cocktail I.A. 1 syringe (Verapamil 2mg/Nitro 400mcg/Heparin 1500units) Versed I.V. 2 mg Fentanyl I.V. 100 mcg Versed I.V. 2 mg Fentanyl I.V. 50 mcg Hemodynamics Rest BSA: 1.69 (m2) HGB: 15.4 (g/dl) O2 Consumption: Estimated: 173.09 (ml/min) O2 Co nsumption indexed: Estimated:102.42 (ml/min/m) Heart Rate: 76 (bpm) Snapshots Pre Cath Intra NCS Post Cath Vital Signs Time Heart Resp SPO2 etCO2 NIBP (mmHg) Rhythm Pain Sedation Rate (ipm) (%) (mmHg) Status Level (bpm) 10:56:05 81 16 96 30 115/82(97) NSR 0 (11) 10(A) , No pain 11:00:06 72 14 94 0 119/91(100) NSR 0 (11) 10(A) , No pain 11:05:11 76 18 96 36 118/72(95) NSR 0 (11) 10(A) , No pain 11:10:13 81 18 94 36.7 108/70(91) NSR 0 (11) 9(A) , No pain 11:14:55 76 14 95 0 119/75(93) NSR 0 (11) 10(A) , No pain Medications Time Medication Route Dose Verified Delivered Reason Notes Effectiveness by by 10:55:04 Oxygen etCO2 2 l/min Davidson Aponte used for Nasal Collins Henley RN procedure cannula 10:55:11 Lidocaine 2% added 20ml Davidson Cedeño for local to vial Collins Guadalupe MD anesthetic field 10:55:17 Heparin Flush added 2 bags Davidson Cedeño used for Bag to Collins Guadalupe MD procedure (1000units/500ml field NS) 10:55:28 0.9% NaCl I.V. 100 Davidson Aponte Per ml/hr Collins Henley RN physician 11:00:00 Versed I.V. 2 mg Davidson Aponte for sedation Collins Henley RN 11:00:07 Fentanyl I.V. 100 mcg Davidson Aponte for sedation Collins Henley RN 11:05:54 Radial Cocktail I.A. 1 Davidson Cedeño for (Verapamil syringe Collins Guadalupe MD vasodilation 2mg/Nitro 400mcg/Heparin 1500units) 11:06:37 Versed I.V. 2 mg Davidson Aponte for sedation Collins Henley RN 11:07:08 Fentanyl I.V. 50 mcg Davidson Aponte for sedation Collins Henley RN Procedure Log Time Note 10:33:47 Diagnostic Cath Status : Elective 10:34:29 Informed consent obtained and on chart 10:34:36 Admit Source: Other 10:34:39 Insurance Payor : Private health insurance 10:34:43 Arrival Date: 02/02/2019 10:30:00 AM 10:35:11 Fadi Henley RN sent for patient. Start room use. 10:39:54 Patient Height : 64.96 inches 10:39:58 Patient Weight : 138.89 lbs 10:43:34 Lab Result : Creatinine 0.8 mg/dl 10:43:34 Lab Result : BUN 8 mg/dl 10:43:34 Lab Result : Hemoglobin 15.4 g/dl 10:43:45 ACC Patient presents with Stable Angina CCS Anginal Class 1--Ordinary physical activity does not cause angina, angina occurs with strenuos, rapid, or prolonged activity.. 10:44:04 ACCPatient has been prescribed/administered the following anti-anginal medication within the last 2 weeks: Beta Mic 10:44:09 Procedure Status Elective Heart Cath (OP). 10:44:12 Time tracking: Regular hours (M-F 7:00 - 5:00) 10:44:16 Plan of Care:Hemodynamics will remain stable., Cardiac rhythm will remain stable., Comfort level will be maintained., Respiratory function will remain adequate., Patient/ family verbilizes understanding of procedure., Procedure tolerated without complication., Recovers from procedure without complications.. 10:45:09 2) 60-89 Mildly reduced kidney function, and other findings (as for stage 1) point to kidney disease. 10:45:40 Maximum allowable contrast dose (3.7 X eGFR X 0.75)227 ml. 10:50:11 Patient received from Pre/Post Procedure Room to [facility] 2 Alert and oriented. Tansferred to table in Supine position. 10:54:53 Vital chart was started 10:55:04 Oxygen 2 l/min etCO2 Nasal cannula was administered by Fadi Henley RN; used for procedure; 10:55:11 Lidocaine 2% 20ml vial added to field was administered by Davidson Guadalupe MD; for local anesthetic; 10:55:17 Heparin Flush Bag (1000units/500ml NS) 2 bags added to field was administered by Davidson Guadalupe MD; used for procedure; 10:55:28 0.9% NaCl 100 ml/hr I.V. was administered by Fadi Henley RN; Per physician; 10:56:12 Warm blankets applied, and connie hugger turned on for patient comfort. 10:56:13 Correct patient and procedure confirmed by team. 10:56:13 ECG and BP/O2 sat monitors applied to patient. 10:56:50 Baseline sample Acquired. 10:56:53 Rhythm: sinus rhythm 10:56:54 Full Disclosure recording started 10:57:51 H&P Date Dictated: 01/14/2019 Within 30 days and on chart., H&P Addendum completed by physician on day of procedure. (MUST COMPLETE FOR ALL OUTPATIENTS). 10:57:52 Pre-procedure instructions explained to patient. 10:57:53 Pre-op teaching completed and patient verbalized understanding. 10:57:55 Family in patients room. 10:57:56 Patient NPO since Midnight. 10:57:58 Is the patient allergic to Iodine/contrast media? No. 10:58:00 Is patient on blood thinner?Yes 10:58:02 ACC The patient was administered the following blood thiners within the last 24 hours: ACCPlavix 10:58:04 Patient diabetic? No. 10:58:05 Patient not . Patient has had hysterectomy. 10:58:07 Previous problem with sedation/anesthesia? No ? 10:58:08 Snore? Yes 10:58:10 Sleep apnea? No 10:58:11 Deviated septum? No 10:58:11 Opens mouth fully? Yes 10:58:12 Sticks out tongue? Yes 10:58:14 Airway obstruction? No ? 10:58:16 Dentures? No ? 10:58:24 Pre procedure: right dorsailis pedis pulse 1+ Palpable, but thready & weak; easily obliterated 10:58:26 Modified Brandon's test Ulnar < 7 seconds 10:58:28 Patient pain scale 0/10 ?. 10:58:40 IV patent on arrival in left forearm with 0.9% NaCl at O. 10:58:42 Lab results completed and on chart. 10:58:49 Right Radial & Right Groin area was prepped with chlora-prep and draped in sterile fashion 10:58:51 Alarms reviewed by R. N. 10:58:51 Sharps counted by scrub and verified by R.N. 10:58:53 --------ALL STOP TIME OUT------ 10:58:54 Final Timeout: patient, procedure, and site verified with staff and physician. All members of the team are in agreement. 10:58:58 Right Radial & Right Groin site verified by team. 10:59:00 Fire Safety Assessment: A--An alcohol-based skin anteseptic being used preoperatively., C--Open oxygen or nitrous oxide is being used., D--An ESU, laser, or fiber-optic light is being used. 10:59:02 Physical assessment completed. ASA score P 2 - A patient with mild systemic disease as per Davidson Guadalupe MD. 10:59:07 Sedation plan: IV Moderate Sedation Medication:Versed, Fentanyl 10:59:32 Use device set Radial Dx or PCI 10:59:34 Tegaderm 4 x 4 (1626W) opened to sterile field. 10:59:35 ACIST Manifold (18797) opened to sterile field. 10:59:36 ACIST Hand Control (27205) opened to sterile field. 10:59:36 Bag Decanter (2002S) opened to sterile field. 10:59:37 ACIST Syringe (75388) opened to sterile field. 10:59:38 Medline Cath Pack (UPQX67570) opened to sterile field. 10:59:42 SHEATH 6FR RAIN (5483190) opened to sterile field. 10:59:43 EMERALD Guide Wire (564-035) opened to sterile field. 10:59:45 MBrace Wrist Support (223967897) opened to sterile field. 11:00:00 Versed 2 mg I.V. was administered by Fadi Henley RN; for sedation; 11:00:07 Fentanyl 100 mcg I.V. was administered by Fadi Henley RN; for sedation; 11:05:41 Procedure started. 11:05:49 Local anesthetic to right radial artery with Lidocaine 2% by Davidson Guadalupe MD.INITIAL ACCESS ONLY 11:05:54 Radial Cocktail (Verapamil 2mg/Nitro 400mcg/Heparin 1500units) 1 syringe I.A. was administered by Davidson Guadalupe MD; for vasodilation; 11:06:01 A 6 Fr Short sheath was inserted into the Right Radial artery 11:06:16 A DIAGNOSTIC [place] 110cm 5 Fr catheter (790120) was advanced over the wire and used for Procedure. 11:06:37 Versed 2 mg I.V. was administered by Fadi Henley RN; for sedation; 11:06:39 LV angiography performed. 11:06:40 LV gram done using BUENROSTRO 11:06:44 EF : 65 % 11:06:47 Injector settings: Ml/sec: 5, Volume: 15, 11:07:08 Fentanyl 50 mcg I.V. was administered by Fadi Henley RN; for sedation; 11:07:12 LCA angiography performed. 11:08:32 RCA angiography performed. 11:08:50 Catheter exchanged over wire. 11:08:55 Use device set TAUTH PCI 11:09:03 INFLATOR Merit SawyerCompak (YE8922) opened to sterile field. 11:09:13 GUIDE 6FR XBLAD 3.5 catheter ([id number]) opened to sterile field. 11:09:16 [place] Verrata Plus pressure wire (14363X) opened to sterile field. 11:10:13 6 Fr XBLAD 3.5 guide catheter was inserted over the wire 11:10:35 FFR/IFR wire advanced. 11:11:29 Wire advanced across lesion. 11:11:48 pCirc lesion measured at 1.04 with IFR 11:11:56 Balloon removed over the wire. 11:11:57 Guide catheter removed. 11:12:50 ZEPHYR REGULAR TR BAND (673582) opened to sterile field. 11:13:53 Sheath removed intact; hemostasis achieved with Mechanical Compression to the Right Radial artery. 11:14:54 Procedure ended.(Physican Out) 11:16:04 Fluoroscopy time 01.80 minutes. 11:16:14 Fluoroscopy dose: 251 mGy 11:16:14 Flurop Dose total: 251 11:16:20 Dose Area Product 83019 mGy/cm. 11:16:26 Contrast amount:Isovue 300 51ml. 11:16:28 Maximum allowable dose exceeded? No. 11:16:29 Sharps counted by scrub and verified by R.N. 11:16:33 TR band inflated with 10cc of air. 11:16:46 Insertion/operative site no bleeding no hematoma. 11:16:48 Post Procedure Pulses reassessed and unchanged 11:16:50 Post-procedure physical assessment completed. ASA score P 2 - A patient with mild systemic disease as per Davidson Guadalupe MD. 11:16:53 Post procedure rhythm: unchanged. 11:16:55 Estimated blood loss: 10 ml 11:16:57 Post procedure instruction explained to patient.Patient verbalizes understanding. 11:16:57 Patient needs reinforcement of post procedure teaching. 11:17:28 Procedure type changed to Cath procedure, Diagnostic procedure, LHC, LHC w/Coronaries, FFR/IVUS, FFR Initial, Sedation Charges, Moderate Sedation up to 15 minutes 11:17:30 Procedure and supply charges have been captured, reviewed, submitted and are correct. 11:17:32 Procedure Complication : No complications 11:18:10 Vital chart was stopped 11:18:11 See physician's report for complete and final results. 11:18:13 Report given to Pre/Post Procedure Room. 11:18:16 Patient transfered to Pre/Post Procedure Room with Stretcher. 11:18:18 Procedure ended. 11:18:18 Full Disclosure recording stopped 11:18:51 End room use (Document Last) Device Usage Item Name Manufacture Quantity Catalog Hospital Part Current Mini mal Lot# / Number Charge Number Stock Stock Serial# Code Tegaderm 4 3M 1 1626W [id number] [id number] 5 x 4 (1626W) ACIST Acist 1 00533 863912 840948 825768 5 Manifold Medical (23154) Systems Inc ACIST Hand Acist 1 18941 137273 383011 745497 5 Control Medical (30081) Systems Inc Bag Microtek 1 2002S 148474 63480 732941 5 Decanter Medical Inc. (2001S) ACIST Acist 1 90819 224754 209522 063223 20 Syringe Medical (49059) Systems Inc Medline Medline 1 [id number] 176126 83486 878316 5 Cath Pack ([id number]) SHEATH 6FR Cardinal 1 1484675 467418 5953414 092253 5 RAIN Health (1152258) EMERALD Cardinal 1 502-455 368549 739990 518550 5 Guide Wire Health (502455) MBrace Advanced 1 140-0250-00 256335 15075 670648 5 Wrist Vascular Support Dynamics (880324089) DIAGNOSTIC Terumo 1 40-1063 051404 904571 047846 5 [place] 110cm 5 Fr catheter (606682) INFLATOR Merit 1 PX5680 355751 450338 577000 15 [facility] BasixCompak (VB4080) GUIDE 6FR Cardinal 1 [id number] 800204 457412 349625 10 XBLAD 3.5 Health catheter (94167957) [place] 1 44241Z 107321 [id number] 319389 5 Verrata Plus pressure wire (08218M) ZEPHYR Cardinal 1 549962 034411 5343736 800763 5 REGULAR TR Health BAND (269611) Signature Audit [place] Stage Time Signature Unsigned Intra-Procedure 02/02/2019 Clinton Castillo 11:19:22 AM RT(R) Signatures Performing Physician : Signature : Davidson Guadalupe MD Date : Time : Monitor : Ana Uzair RT Signature : Date : Time : Nurse : Fadi Henley RN Signature : Date : Time : [place] [address] [place] [address]
[2019-02-02 09:02] VITALS: BP 146/93; Ht 165.1 cm; Wt 62.7 kg
[2019-02-02 09:12] LABS: BASOPHILS 0.2 % (0-2); EOSINOPHILS 3.3 % (0-7); HEMATOCRIT 42.8 % (36.0-48.0); HEMOGLOBIN 15.4 g/dL (12-16); IMMATURE GRANULOCYTES 0.4 % (0-5); LYMPHOCYTES 30.4 % (15-50); MCH 30.5 pg (26.0-34.0); MCV 84.8 fL (80.0-100.0); MEAN PLATELET VOLUME 9.2 fL (7.4-10.4); MONOCYTES 8.7 % (2-11); PLATELET COUNT 262 10x3/uL (130-400); RBC 5.05 10x6/uL (4.00-5.40); RDW 13.2 % (11.5-14.5); WBC 9.9 10x3/uL (4.8-10.8)
[2019-02-02 09:22] LABS: CALC OSMOLALITY 274 mosm/kg (275-300); CALCIUM 8.9 mg/dL (8.5-10.1); CARBON DIOXIDE 23.3 mmol/L (21.0-32.0); CHLORIDE - SERUM 104 mmol/L (98-107); CREATININE - SERUM 0.8 mg/dL (0.6-1.3); GLUCOSE 110 mg/dL (74-106); POTASSIUM - SERUM 3.7 mmol/L (3.5-5.1); SODIUM 138 mmol/L (136-145); UREA NITROGEN 8 mg/dL (7-18); eGFR NON AFRICAN AMERICAN 82 mL/min (90-120)
--- NOTE | 2019-02-02 11:30 | NUR ---
RIGHT RADIAL TR BAND IN PLACE. NO BLEEDING/HEMATOMA NOTED. VSS. FAMILY AT BEDSIDE.
--- NOTE | 2019-02-02 11:45 | NUR ---
RIGHT RADIAL TR BAND IN PLACE. NO BLEEDING/HEMATOMA NOTED. VSS.
--- NOTE | 2019-02-02 12:15 | NUR ---
RIGHT RADIAL TR BAND IN PLACE. NO BLEEDING/HEMATOMA NOTED. 2cc OF AIR REMOVED FROM BAND. NO BLEEDING NOTED
--- NOTE | 2019-02-02 12:30 | NUR ---
2cc OF AIR REMOVED FROM TR BAND. NO BLEEDING/HEMATOMA NOTED.
[2019-02-02 12:34] LABS: CHOL - HDL RATIO 4.8 ratio (2.3-4.1)
--- NOTE | 2019-02-02 12:45 | NUR ---
3cc OF AIR REMOVED FROM TR BAND. NO BLEEDING/HEMATOMA NOTED. PT SITTING UP EATING SANDWICH. DENIES NAUSEA. FAMILY AT BEDSIDE. UPDATED ON PT'S STATUS.
--- NOTE | 2019-02-02 13:00 | NUR ---
PIV D/C'D WITH CATH TIP INTACT. PT TOLERATED WELL. PT UP AND DRESSED. AMBULATED TO RESTROOM AND VOIDED WITHOUT DIFFICULTY.
--- NOTE | 2019-02-02 13:05 | NUR ---
RIGHT RADIAL TR BAND WEANED OFF. NO BLEEDING/HEMATOMA NOTED. RIGHT WRIST BRACE IN PLACE. PT INSTRUCTED TO KEEP ON FOR 2 HOURS AFTER ARRIVAL HOME. SHE VOICED UNDERSTANDING.
--- NOTE | 2019-02-02 13:10 | NUR ---
DISCUSSED DISCHARGE INSTRUCTIONS WITH PT AND PT'S FAMILY. THEY VOICED UNDERSTANDING.
--- NOTE | 2019-02-02 13:30 | NUR ---
RIGHT WRIST DRESSING C/D/I. NO S/S OF HEMATOMA NOTED. PT TAKEN OUT TO VEHICLE BY WHEELCHAIR. NO S/S OF DISTRESS NOTED. ALL BELONGINGS AND PAPERWORK IN HAND.
--- NOTE | 2019-02-03 09:53 | OP ---
PATIENT NAME: ANTHONY MANCINI MEDICAL RECORD: [id number] :73 LOCATION:[facility] ADMISSION DATE: SURGEON: GUADALUPE MASON MD DATE OF OPERATION: 02/02/2019 PROCEDURES: 1. Left heart catheterization. 2. Selective coronary angiography. 3. Left ventriculogram. 4. IFR. INDICATION: Angina and coronary artery disease. PROCEDURE IN DETAIL: After informed consent was obtained and after a detailed description of risks, benefits as well as alternative therapies, the patient elected to proceed with angiogram and heart catheterization. The right radial area was prepped and draped in normal sterile fashion. Right radial artery was cannulated via modified Seldinger technique with placement of 5-Estonian sheath. All catheters exchanged through this sheath. FINDINGS: The left ventriculogram was performed in standard 30-degree BUENROSTRO view, reveals good cardiac wall motion, ejection fraction is 60%. SELECTIVE CORONARY ANGIOGRAPHY: 1. Left main is with no significant angiographic disease. 2. Left anterior descending has no significant stenosis. 3. The left circumflex has previously placed stents. There is a questionable area of stenosis proximal to this; however, IFR was normal. 4. Right coronary artery has moderate irregularities, but no flow-limiting stenosis. OVERALL IMPRESSION: Wide patency of the previously placed stents, no disease elsewise. Continue medical management of the coronary artery disease and cardiac risk factors. TRANSINT:[id number] Voice Confirmation ID: [id number] DOCUMENT ID: [id number] GUADALUPE MASON MD at 0953 CC: [id number] DICTATION DATE: 02/02/19 1115 SPORTS EQUIPMENT REPAIRER: 02/02/19 1148 DEP CLI 02/02/[address] [address]
== END 2019-02-02 14:25 | disposition home or self-care (01) ==
LOC: D.CATH
PROVIDERS: ATTEND Internal Medicine Interventional Cardiology
DX: R94.30 Abnormal result of cardiovascular function study, unspecified (principal); R06.02 Shortness of breath; I25.110 Atherosclerotic heart disease of native coronary artery with unstable angina pectoris

== ENCOUNTER 2019-11-04 10:41 | Observation (INO) | payer BC ==
[~2019-11-04] VITALS: Ht 167.6 cm; Wt 64.5 kg
--- NOTE | ~2019-11-04 | HEMODYNAMI ---
PATIENT:ANTHONY MANCINI MEDICAL RECORD: [id number] : 73 [id number] ADMISSION DATE: 11/04/19 Generatedon:11/05/201911:17 Patient name: ANTHONY MANCINI Patient #: [id number] SSN: [id number] : 1975 Date of study: 11/05/2019 Page: Of Hemodynamic Procedure Report Patient Data Patient Demographics Procedure consent was obtained First Name: ANTHONY Gender: Female Last Name: ADDIS : 1975 Middle Initial: ALBERT Age: 43 year(s) Patient #: [id number] Race: SSN: [id number] Additional ID: [id number] Contact details [address]: [address] [place] [address] State: [place] City: [place] Zip code: [address] Past Medical History Allergies Allergen Reaction Date Comments Reported Natural rubber 06/04/2017 and latex Other allergy 06/04/2017 dilaudid, lyrica Other allergy 07/18/2018 hydromorphone, latex, lyrica, Other allergy 11/05/2019 glycopyrrolate, hydromorphone, pregablin Admission Admission Data Admission Date: 11/04/2019 Admission Time: 10:49 Admit Source: Emergency department Room #: D.2122 Lab Results Lab Result Date: 11/05/2019 Lab Result Time: 4:45 Biochemistry Name Units Result Min Max BUN mg/dl 6 -*(----)-- 7 18 Creatinine mg/dl 0.8 --(-*--)-- 0.6 1.3 CBC Name Units Result Min Max Hematocrit % 41.8 -*(----)-- 42 54 Hemoglobin g/dl 13.8 --(*---)-- 13.5 17.5 Procedure Procedure Types Cath Procedure Diagnostic Procedure LHC LH w/Coronaries FFR/IVUS FFR Initial FFR Additional Sedation Charges Moderate Sedation up to 30 minutes Procedure Description Procedure Date Procedure Date: 11/05/2019 Procedure Start Time: 10:42 Procedure End Time: 11:13 Procedure Staff Name Function Luis Carlos Smith MD Performing Physician Isaiah Roblero RT Monitor Andreea Funk RT Scrub Richa Martin RN Nurse Procedure Data Cath Procedure Fluoroscopy Diagnostic fluoroscopy Total fluoroscopy Time: 4.6 time: 4.6 min min Diagnostic fluoroscopy Total fluoroscopy dose: 279 dose: 279 mGy mGy Contrast Material Contrast Material Type Amount (ml) Isovue 300 76 Entry Location Entry Primary Successful Side Size Upsize Upsize Entry Closure Succes sful Closure Location (Fr) 1 (Fr) 2 (Fr) Remarks Device Remarks Femoral Right 5 Fr 6 Fr Exoseal artery Short Estimated blood loss: 5 ml Diagnostic catheters Device Type Used For End Catheter Placement MULTIPACK JL 4.0 5Fr Procedure catheter MULTIPACK 3DRC 5Fr Procedure catheter MULTIPACK Pigtail 5 Fr Procedure catheter MULTIPACK JL 4.0 5Fr Procedure catheter Procedure Complications No complications Procedure Medications Medication Administration Route Dosage 0.9% NaCl I.V. 100 ml/hr Oxygen etCO2 Nasal cannula 2 l/min Lidocaine 2% added to field 20 Heparin Flush Bag added to field 2 bags (1000units/500ml NS) Versed I.V. 2 mg Fentanyl I.V. 50 mcg Versed I.V. 2 mg Fentanyl I.V. 50 mcg Versed I.V. 2 mg Fentanyl I.V. 50 mcg Versed I.V. 2 mg Fentanyl I.V. 50 mcg Hemodynamics Rest HGB: 13.8 (g/dl) Heart Rate: 69 (bpm) Pressure Samples Time Site Value (mmHg) Purpose Heart Use Rate(bpm) 10:51 LV 151/32,27 Snapshot 96 10:51 LV 155/5,13 Snapshot 90 Snapshots Pre Cath Intra NCS Post Cath Vital Signs Time Heart Resp SPO2 etCO2 NIBP (mmHg) Rhythm Pain Sedation Rate (ipm) (%) (mmHg) Status Level (bpm) 10:23:59 67 14 98 21 143/91(120) NSR 0 (11) 10(A) , No pain 10:28:09 69 16 98 35.4 157/91(118) NSR 0 (11) 10(A) , No pain 10:32:25 69 24 100 18.8 145/88(113) NSR 0 (11) 10(A) , No pain 10:36:37 72 16 98 39.9 137/87(113) NSR 0 (11) 10(A) , No pain 10:40:46 78 18 96 20.3 139/85(107) NSR 0 (11) 10(A) , No pain 10:44:56 67 15 96 21.1 130/84(104) NSR 0 (11) 10(A) , No pain 10:49:04 76 10 98 39.9 142/82(118) NSR 0 (11) 10(A) , No pain 10:53:14 77 17 96 40.7 135/97(114) NSR 0 (11) 10(A) , No pain 10:57:20 78 11 97 42.4 142/94(107) NSR 0 (11) 10(A) , No pain 11:01:26 78 10 96 38.7 131/91(110) NSR 0 (11) 10(A) , No pain 11:05:32 76 15 98 42 128/91(117) NSR 0 (11) 10(A) , No pain 11:09:35 86 11 96 38 141/101(115) NSR 0 (11) 10(A) , No pain Medications Time Medication Route Dose Verified Delivered Reason Notes Eff ectiveness by by 10:23:06 0.9% NaCl I.V. 100 Luis Carlos Richa used for ml/hr Luis Martin area coordinator 10:23:14 Oxygen etCO2 2 Luis Carlos Richa used for Nasal l/min Luis Martin procedure cannula RN 10:23:19 Lidocaine 2% added 20ml Luis Carlos Luis Carlos for local to vial Luis Smith MD anesthetic field 10:23:24 Heparin Flush added 2 Luis Carlos Luis Carlos used for Bag to bags Luis Smith MD procedure (1000units/500ml field NS) 10:37:43 Versed I.V. 2 mg Luis Carlos Richa for Luis Martin sedation RN 10:37:52 Fentanyl I.V. 50 Luis Carlos Richa for mcg Luis Martin sedation RN 10:44:31 Versed I.V. 2 mg Luis Carlos Richa for Luis Martin sedation RN 10:44:37 Fentanyl I.V. 50 Luis Carlos Richa for mcg Luis Martin sedation RN 10:49:59 Versed I.V. 2 mg Luis Carlos Richa for Luis Martin sedation RN 10:50:03 Fentanyl I.V. 50 Luis Carlos Richa for mcg Luis Martin sedation RN 10:56:39 Versed I.V. 2 mg Luis Carlos Richa for Luis Martin sedation RN 10:56:44 Fentanyl I.V. 50 Luis Carlos Richa for mcg Luis Martin sedation kindergartners helper Log Time Note 10:00:05 Richa Martin RN sent for patient. Start room use. 10:07:15 Informed consent obtained and on chart 10:10:24 Lab Result : Hemoglobin 13.8 g/dl 10::24 Lab Result : Hematocrit 41.8 % 10::24 Lab Result : BUN 6 mg/dl 10::24 Lab Result : Creatinine 0.8 mg/dl 10:13:52 Admit Source: Emergency department 10:15:01 Procedure Status Emergent Heart Cath (AMI). 10:15:10 Time tracking: Regular hours (M-F 7:00 - 5:00) 10:15:14 Plan of Care:Hemodynamics will remain stable., Cardiac rhythm will remain stable., Comfort level will be maintained., Respiratory function will remain adequate., Patient/ family verbilizes understanding of procedure., Procedure tolerated without complication., Recovers from procedure without complications.. 10:15:22 H&P Date Dictated: 11/04/2019 Within 30 days and on chart.. 10:18:45 Patient received from Med II to CCL 1 Alert and oriented. Tansferred to table in Supine position. 10:18:47 Warm blankets applied, and connie hugger turned on for patient comfort. 10:18:48 ECG and BP/O2 sat monitors applied to patient. 10:18:48 Correct patient and procedure confirmed by team. 10:18:50 Pre-procedure instructions explained to patient. 10:18:51 Pre-op teaching completed and patient verbalized understanding. 10:22:58 Vital chart was started 10:23:06 0.9% NaCl 100 ml/hr I.V. was administered by Richa Martin RN; used for procedure; Verbal order read back and verified. 10:23:14 Oxygen 2 l/min etCO2 Nasal cannula was administered by Richa Martin RN; used for procedure; Verbal order read back and verified. 10:23:19 Lidocaine 2% 20ml vial added to field was administered by Luis Carlos Smith MD; for local anesthetic; Verbal order read back and verified. 10:23:24 Heparin Flush Bag (1000units/500ml NS) 2 bags added to field was administered by Luis Carlos Smith MD; used for procedure; Verbal order read back and verified. 10:24:25 ACC Patient presents with Unstable Angina CCS Anginal Class 3--Marked limitation of physical activity, angina occurs with ordinary activity.. 10:24:28 Baseline sample Acquired. 10:24:31 Rhythm: sinus rhythm 10::23 Full Disclosure recording started 10::38 Family unavailable. 10::40 Patient NPO since Midnight. 10:27:56 Patient allergic to Other allergyglycopyrrolate, hydromorphone, pregablin 10:27:58 Is the patient allergic to Iodine/contrast media? No. 10:27:59 Is patient on blood thinner?Yes 10:28:01 ACC The patient was administered the following blood thiners within the last 24 hours: ACCAspirin, ACCPlavix 10:28:05 Patient diabetic? No. 10:28:07 Previous problem with sedation/anesthesia? No ? 10:28:08 Snore? Yes 10:28:10 Sleep apnea? Unknown 10:28:11 Opens mouth fully? Yes 10:28:11 Deviated septum? No 10:28:12 Sticks out tongue? Yes 10:28:13 Airway obstruction? No ? 10:28:15 Dentures? No ? 10:28:17 Pre procedure: right dorsailis pedis pulse 2+ Normal; easily identifiable; not easily obliterated 10:28:34 Radial pulse too weak for access. 10:28:38 Patient pain scale 0/10 ?. 10:28:42 IV patent on arrival in left forearm with 0.9% NaCl at [facility]. 10:28:45 Lab results completed and on chart. 10:30:15 Risk of Mortality: <.1% 10:30:20 Risk of blood transfusion: 1.6% 10:30:24 Risk of ILDA: 3.2% 10:30:27 Right groin area was prepped with chlora-prep and aped in sterile fashion 10:30:28 Sharps counted by scrub and verified by R.N. 10:30:28 Alarms reviewed by R. N. 10:30:30 ACIST Syringe (32314) opened to sterile field. 10:30:30 Use device set Femoral Dx 10:30:31 Medline Cath Pack ([id number]) opened to sterile field. 10:30:31 Bag Decanter (2002S) opened to sterile field. 10:30:32 ACIST Manifold (48026) opened to sterile field. 10:30:32 ACIST Hand Control (82355) opened to sterile field. 10:30:34 DIAGNOSTIC Multipack 5Fr catheter set (HS8748) opened to sterile field. 10:30:34 Tegaderm 4 x 4 (1626W) opened to sterile field. 10:30:36 EMERALD Guide Wire (281-978) opened to sterile field. 10:30:37 SHEATH 5FR Pinewood (DDA646) opened to sterile field. 10:36:10 Final Timeout: patient, procedure, and site verified with staff and physician. All members of the team are in agreement. 10:36:10 --------ALL STOP TIME OUT------ 10:36:10 Physician arrived 10:36:13 Right groin site verified by team. 10:36:17 Fire Safety Assessment: A--An alcohol-based skin anteseptic being used preoperatively., C--Open oxygen or nitrous oxide is being used., D--An ESU, laser, or fiber-optic light is being used. 10:36:20 Physical assessment completed. ASA score P 2 - A patient with mild systemic disease as per Luis Carlos Smith MD. 10:36:39 1) 90+ Normal kidney functon but urine findings or structural abnormalities or genetic trait point to kidney disease. 10:36:42 Maximum allowable contrast dose (3.7 X eGFR X 0.75)250 ml. 10:36:45 Sedation plan: IV Moderate Sedation Medication:Versed, Fentanyl 10:37:43 Versed 2 mg I.V. was administered by Richa Martin RN; for sedation; Verbal order read back and verified. 10:37:52 Fentanyl 50 mcg I.V. was administered by Richa Mario RN; for sedation; Verbal order read back and verified. 10:42:09 Procedure started. 10:42:12 Local anesthetic to right femoral artery with Lidocaine 2% by Luis Carlos Smith MD.INITIAL ACCESS ONLY 10:42:19 A 5 Fr sheath was inserted into the Right Femoral artery 10:42:54 Zero performed for pressure channel P1 10:44:31 Versed 2 mg I.V. was administered by Richa Martin RN; for sedation; Verbal order read back and verified. 10:44:37 Fentanyl 50 mcg I.V. was administered by Richa Martin RN; for sedation; Verbal order read back and verified. 10:46:14 A MULTIPACK JL 4.0 5Fr catheter was advanced over the wire and used for Procedure. 10:46:15 LCA angiography performed. 10:46:44 Catheter exchanged over wire. 10:49:08 A MULTIPACK 3DRC 5Fr catheter was advanced over the wire and used for Procedure. 10:49:15 RCA angiography performed. 10:49:59 Versed 2 mg I.V. was administered by Richa Martin RN; for sedation; Verbal order read back and verified. 10:50:03 Fentanyl 50 mcg I.V. was administered by Richa Martin RN; for sedation; Verbal order read back and verified. 10:50:31 Catheter exchanged over wire. 10:50:34 A MULTIPACK Pigtail 5 Fr catheter was advanced over the wire and used for Procedure. 10:51:33 LV gram done using BUENROSTRO 10:51:35 Injector settings: Ml/sec: 10, Volume: 20, 10:51:36 LV hemodynamics recorded. 10:54:15 EF : 60 % 10:54:16 Catheter removed. 10:54:29 INFLATOR Merit BasixCompak (FH9873) opened to sterile field. 10:54:29 [place] Verrata Plus pressure wire (41613G) opened to sterile field. 10:54:31 SHEATH 6FR Pinewood (ESR823) opened to sterile field. 10:54:50 GUIDE 6FR JR 4.0 catheter ([id number]) opened to sterile field. 10:54:59 Sheath upsized to a 6 Fr Short. 10:55:04 6 Fr JR 4.0 guide catheter was inserted over the wire 10:55:16 TUBING High Pressure Extension Tubing (Luis) ([id number]) opened to sterile field. 10:56:39 Versed 2 mg I.V. was administered by Richa Martin RN; for sedation; Verbal order read back and verified. 10:56:44 Fentanyl 50 mcg I.V. was administered by Richa Martin RN; for sedation; Verbal order read back and verified. 10:58:08 FFR/IFR wire advanced. 10:59:23 Wire advanced across lesion. 11:00:37 mRCA lesion measured at 0.99 with IFR 11:01:46 Catheter exchanged over wire. 11:03:04 A MULTIPACK JL 4.0 5Fr catheter was advanced over the wire and used for Procedure. 11:04:24 FFR/IFR wire advanced. 11:05:56 Wire advanced across lesion. 11:07:34 pLAD lesion measured at 0.91 with IFR 11:07:56 Wire removed. 11:08:04 Catheter removed. 11:08:24 EXOSEAL 6Fr (EX600) opened to sterile field. 11:08:40 Sheath removed intact; hemostasis achieved with Exoseal to the Right Femoral artery. 11:08:42 Procedure ended.(Physican Out) 11:08:50 Fluoroscopy time 04.60 minutes. 11:08:56 Fluoroscopy dose: 279 mGy 11:08:56 Flurop Dose total: 279 11::11 Dose Area Product 59380 mGy/cm. 11:09:21 Contrast amount:Isovue 300 76ml. 11:09:23 Maximum allowable dose exceeded? No. 11::24 Sharps counted by scrub and verified by R.N. 11::44 Insertion/operative site no bleeding no hematoma. 11:09:46 Post-op/insertion site Right Femoral artery dressed using a 4 x 4 and Tegaderm. 11:09:49 Post right femoral artery:stable, soft, clean and dry 11:09:50 Post Procedure Pulses reassessed and unchanged 11::56 Post-procedure physical assessment completed. ASA score P 2 - A patient with mild systemic disease as per Luis Carlos Smith MD. 11:09:59 Post procedure rhythm: unchanged. 11:10:04 Estimated blood loss: 5 ml 11:10:06 Post procedure instruction explained to patient.Patient verbalizes understanding. 11:10:07 Patient needs reinforcement of post procedure teaching. 11:11:02 Procedure type changed to Cath procedure, Diagnostic procedure, LHC, [facility] w/Coronaries, FFR/IVUS, FFR Initial, FFR Additional, Sedation Charges, Moderate Sedation up to 30 minutes 11:11:42 ACT drawn and resulted at 192 seconds. (normal therapeutic range 180-240 seconds). 11:12:19 Procedure and supply charges have been captured, reviewed, submitted and are correct. 11:12:22 Procedure Complication : No complications 11:12:24 Vital chart was stopped 11:13:02 [facility] Findings: mild to moderate CAD (<70%) 11:13:05 Operative report dictated upon procedure completion. 11:13:06 See physician's report for complete and final results. 11:13:09 Report given to PCU. 11:13:12 Patient transfered to PCU with Stretcher. 11:13:13 Full Disclosure recording stopped 11:13:13 Procedure ended. 11:13:17 End room use (Document Last) Device Usage Item Name Manufacture Quantity Catalog Hospital Part Current Minima l Lot# / Number Charge Number Stock Stock Serial# Code ACIST Acist 1 35392 142401 013916 [id number] 20 Syringe Medical (09501) Systems Inc Bag Microtek 1 2001S 337504 60302 977383 5 Decanter Medical Inc. () Medline Medline 1 [id number] 928916 33450 929064 5 Cath Pack ([id number]) ACIST Hand Acist 1 84793 895201 736191 665464 5 Control Medical (13277) Systems Inc ACIST Acist 1 05894 779539 734891 126276 5 Manifold Medical (32259) Systems Inc Tegaderm 4 3M 1 1626W 136105 683815 446918 5 x 4 (1626W) DIAGNOSTIC Cardinal 1 VS0207 704458 88488 202449 30 Multipack Health 5Fr catheter set (VW3949) EMERALD Cardinal 1 502-455 736072 187956 235650 5 Guide Wire Health (502-455) SHEATH 5FR Terumo 1 BZD933 373058 816750 070023 5 Pinewood (CUJ849) MULTIPACK Cardinal 1 329424 5 JL 4.0 5Fr Health catheter MULTIPACK Cardinal 1 010099 5 3DRC 5Fr Health catheter MULTIPACK Cardinal 1 087393 5 Pigtail 5 Health Fr catheter [place] 1 44933Q 677896 [id number] 363492 5 Verrata Plus pressure wire (86060Z) INFLATOR Merit 1 CF9742 053550 080707 157035 15 Merit Medical BasixCompak (FX7091) SHEATH 6FR Terumo 1 IWZ952 489200 719334 374749 40 Pinewood (WUS267) GUIDE 6FR Medtronic 1 QH1LR31 005257 92883 796144 1 JR 4.0 catheter (DR0ZD71) TUBING High Merit 1 [id number] 045495 63966 455368 10 Pressure Medical Extension Tubing (Luis) (QU1312F) EXOSEAL 6Fr Cardinal 1 EX600 962116 541770 273301 10 (EX600) Health Signature Audit [place] Stage Time Signature Unsigned Intra-Procedure 11/05/2019 Isaiah Roblero RT(R) 11:14:22 AM RT(R) 11/05/2019 11:15:46 AM Intra-Procedure 11/05/2019 Richa Martin 11:16:06 AM RN; Isaiah Roblero RT(R); Luis Carlos Smith MD [id number] [place] [address]
[2019-11-04 11:36] LABS: APTT 29.4 SECONDS (22.8-39.4); INR 1.04 (0.85-1.17); PROTIME 13.5 SECONDS (11.6-15.0)
[2019-11-04 11:41] LABS: CALC OSMOLALITY 277 mosm/kg (275-300); CALCIUM 8.4 mg/dL (8.5-10.1); CARBON DIOXIDE 24.6 mmol/L (21.0-32.0); CHLORIDE - SERUM 106 mmol/L (98-107); CREATININE - SERUM 0.7 mg/dL (0.6-1.3); GLUCOSE 107 mg/dL (74-106); SODIUM 140 mmol/L (136-145); UREA NITROGEN 11 mg/dL (7-18); eGFR NON AFRICAN AMERICAN > 90 mL/min (90-120)
[2019-11-04 11:57] LABS: ALBUMIN 3.7 g/dL (3.4-5.0); ALKALINE PHOSPHATASE 54 U/L (30-120); ALT (SGPT) 18 U/L (10-68); BILIRUBIN - TOTAL 0.24 mg/dL (0.2-1.3); CKMB 0.3 U/L (0.0-3.6); CREATINE KINASE 49 UL (21-215); MAGNESIUM - SERUM 1.8 mg/dL (1.8-2.4)
[2019-11-04 12:00] VITALS: BP 123/79
[2019-11-04 12:01] LABS: TROPONIN-I < 0.017 ng/mL (0.000-0.060)
[2019-11-04 12:17] LABS: BASOPHILS 0.1 % (0-2); EOSINOPHILS 0.4 % (0-7); HEMATOCRIT 40.7 % (36.0-48.0); HEMOGLOBIN 13.8 g/dL (12-16); IMMATURE GRANULOCYTES 0.4 % (0-5); LYMPHOCYTES 16.5 % (15-50); MCH 30.9 pg (26.0-34.0); MCHC 33.9 g/dL (31.0-37.0); MCV 91.1 fL (80.0-100.0); MEAN PLATELET VOLUME 9.5 fL (7.4-10.4); MONOCYTES 7.2 % (2-11); NEUTROPHILS 75.4 % (40-80); PLATELET COUNT 345 10x3/uL (130-400); RBC 4.47 10x6/uL (4.00-5.40); WBC 15.8 10x3/uL (4.8-10.8)
[2019-11-04 12:23] VITALS: BP 130/71
--- NOTE | 2019-11-04 12:47 | NUR ---
RECEIVED PT TO ROOM 2121. PT A/O X4, RESP EVEN AND UNLABORED ON RA. ORIENTED PT TO ROOM AND CALL LIGHT. WILL ASSESS PT AND START PLAN OF CARE.
[2019-11-04 13:07] VITALS: BMI 22.6
--- NOTE | 2019-11-04 14:22 | NUR ---
PER GEE BASHIR APN, PT CAN EAT, SHE WILL NOT BE HAVING ANYTHING DONE TODAY.
[2019-11-04 16:00] VITALS: BP 126/79
[2019-11-04 16:20] VITALS: Ht 167.6 cm; Wt 64.5 kg
[2019-11-04 17:15] LABS: CKMB 0.2 U/L (0.0-3.6); CREATINE KINASE 42 UL (21-215)
[2019-11-04 17:17] LABS: TROPONIN-I < 0.017 ng/mL (0.000-0.060)
--- NOTE | 2019-11-04 17:33 | NUR ---
CONSENTS SIGNED BY PT AND PLACED ON CHART.
[2019-11-04 18:02] LABS: CHOL - HDL RATIO 5.1 ratio (2.3-4.1); LDL-HDL RATIO 3.1 ratio (1.5-3.5)
[2019-11-04 20:00] VITALS: BP 145/82
--- NOTE | 2019-11-04 20:00 | NUR ---
URINE SPECIMINE COLLECTED AND TAKEN TO LAB.
[2019-11-04 20:51] LABS: BILIRUBIN NEGATIVE (NEGATIVE); GLUCOSE NEGATIVE (NEGATIVE); KETONE NEGATIVE (NEGATIVE); NITRITE NEGATIVE (NEGATIVE); RED CELLS - URINE OCC /hpf (0-5); SPECIFIC GRAVITY 1.025 (1.005-1.020); UROBILINOGEN NORMAL (NORMAL); WHITE CELLS - URINE 0-5 /hpf (NEGATIVE)
[2019-11-04 21:23] LABS: UDS - AMPHET NEGATIVE QUAL (NEGATIVE); UDS - BARB NEGATIVE QUAL (NEGATIVE); UDS - BENZO NEGATIVE QUAL (NEGATIVE); UDS - OPIATE NEGATIVE QUAL (NEGATIVE); UDS - PCP NEGATIVE QUAL (NEGATIVE); UDS - THC NEGATIVE QUAL (NEGATIVE)
[2019-11-04 21:35] LABS: UDS - COCAINE NEGATIVE QUAL (NEGATIVE)
[2019-11-04 23:48] LABS: CKMB 0.3 U/L (0.0-3.6); CREATINE KINASE 46 UL (21-215); TROPONIN-I < 0.017 ng/mL (0.000-0.060)
--- NOTE | 2019-11-05 01:22 | NUR ---
RESTING WITH EYES CLOSED, RESPERATIONS EVEN, NO S/S DISTRESS NOTED.
[2019-11-05 04:00] VITALS: BP 134/91; BP 143/86
--- NOTE | 2019-11-05 04:53 | NUR ---
IV TO LEFT AC COVERED, PT UP TO SHOWER WITH HIBICLENSE.
[2019-11-05 05:32] LABS: BASOPHILS 0.1 % (0-2); EOSINOPHILS 0.5 % (0-7); HEMATOCRIT 41.8 % (36.0-48.0); HEMOGLOBIN 13.8 g/dL (12-16); IMMATURE GRANULOCYTES 0.2 % (0-5); LYMPHOCYTES 24.2 % (15-50); MCH 30.3 pg (26.0-34.0); MCV 91.7 fL (80.0-100.0); MEAN PLATELET VOLUME 9.3 fL (7.4-10.4); PLATELET COUNT 314 10x3/uL (130-400); RBC 4.56 10x6/uL (4.00-5.40); RDW 13.1 % (11.5-14.5)
[2019-11-05 05:42] LABS: WBC 9.6 10x3/uL (4.8-10.8)
[2019-11-05 06:24] LABS: ALBUMIN 3.7 g/dL (3.4-5.0); ALKALINE PHOSPHATASE 50 U/L (30-120); BILIRUBIN - TOTAL 0.26 mg/dL (0.2-1.3); CALCIUM 8.8 mg/dL (8.5-10.1); CARBON DIOXIDE 26.7 mmol/L (21.0-32.0); CHLORIDE - SERUM 105 mmol/L (98-107); CKMB 0.3 U/L (0.0-3.6); CREATINE KINASE 44 UL (21-215); CREATININE - SERUM 0.8 mg/dL (0.6-1.3); GLUCOSE 98 mg/dL (74-106); MAGNESIUM - SERUM 1.9 mg/dL (1.8-2.4); PHOSPHOROUS 3.2 mg/dL (2.5-4.9); POTASSIUM - SERUM 3.9 mmol/L (3.5-5.1); PROTEIN - SERUM 7.4 g/dL (6.4-8.2); SODIUM 139 mmol/L (136-145); TROPONIN-I < 0.017 ng/mL (0.000-0.060); eGFR NON AFRICAN AMERICAN 82 mL/min (90-120)
[2019-11-05 06:35] LABS: ALT (SGPT) 12 U/L (10-68); CALC OSMOLALITY 275 mosm/kg (275-300); UREA NITROGEN 6 mg/dL (7-18)
[2019-11-05 09:23] VITALS: BP 144/84
== END 2019-11-05 16:52 | disposition home or self-care (01) ==
LOC: D.ER 10:41 → D.M2 10:49 → OBSVTIME 11:31 → D.M2 11-05 16:52
PROVIDERS: Family Medicine; Internal Medicine Cardiovascular Disease; ADMIT Internal Medicine Nephrology; ATTEND Internal Medicine Nephrology
DX: I25.110 Atherosclerotic heart disease of native coronary artery with unstable angina pectoris (principal); E78.5 Hyperlipidemia, unspecified; I10 Essential (primary) hypertension; K21.9 Gastro-esophageal reflux disease without esophagitis; G89.4 Chronic pain syndrome; F41.8 Other specified anxiety disorders

== ENCOUNTER → 2019-11-17 09:04 | Outpatient (CLI) | payer BC ==
[2019-11-04 16:20] VITALS: BMI 22.6
== END | disposition home or self-care (01) ==
LOC: D.HCCARDIO 09:00
PROVIDERS: ATTEND Internal Medicine Cardiovascular Disease
DX: I25.10 Atherosclerotic heart disease of native coronary artery without angina pectoris (principal)

== ENCOUNTER → 2020-09-13 09:20 | Outpatient (CLI) | payer BC ==
[2019-11-04 16:20] VITALS: BMI 22.6
== END | disposition home or self-care (01) ==
LOC: D.HCCARDIO 09:20
PROVIDERS: ATTEND Internal Medicine Cardiovascular Disease
DX: R07.9 Chest pain, unspecified (principal)

== ENCOUNTER 2020-09-26 11:58 | Day surgery (SDC) | payer BC ==
[~2020-09-26] VITALS: Ht 167.6 cm; Wt 58.1 kg
--- NOTE | ~2020-09-26 | HEMODYNAMI ---
PATIENT:ANTHONY MANCINI MEDICAL RECORD: [id number] : 73 LOCATION:[facility] ADMISSION DATE: 09/26/20 Generatedon:114:32 Patient name: ANTHONY MANCINI Patient #: [id number] SSN: [id number] : 1975 Date of study: 09/26/2020 Page: Of Hemodynamic Procedure Report Patient Data Patient Demographics Procedure consent was obtained First Name: ANTHONY Gender: Female Last Name: ADDIS : 1975 Middle Initial: ALBERT Age: 44 year(s) Patient #: [id number] Race: SSN: [id number] Additional ID: [id number] Contact details [address]: [address] [place] [address] State: [place] City: [place] Zip code: [address] Past Medical History Performed procedures and imaging results Date Procedure Procedure Results Comments 09/13/2020 Stress testing Positive->Intermediate with SPECT MPI risk Allergies Allergen Reaction Date Comments Reported Natural rubber 06/04/2017 and latex Other allergy 06/04/2017 dilaudid, lyrica Other allergy 07/18/2018 hydromorphone, latex, lyrica, Other allergy 11/05/2019 glycopyrrolate, hydromorphone, pregablin Other allergy 09/26/2020 LATEX, DILAUDID, LYRICA, ROBINUL Admission Admission Data Admission Date: 09/26/2020 Admission Time: 11:58 Arrival Date: 09/26/2020 Arrival Time: 0:00 Admit Source: Other Insurance Payor: Private health insurance [facility] #: [id number] Height (in.): 66 BSA: 1.64 (m2) Height (cm.): 167.64 BMI: 20.18 (kg/m2) Weight (lbs.): 125 Weight (kg.): 56.7 Lab Results Lab Result Date: 09/26/2020 Lab Result Time: 0:00 Biochemistry Name Units Result Min Max BUN mg/dl 8 --(*---)-- 7 18 Creatinine mg/dl 0.9 --(-*--)-- 0.6 1.3 eGFR ml/min 72 *-(----)-- 90 120 NONAFRICAN CBC Name Units Result Min Max Hematocrit % 41.2 -*(----)-- 42 54 Hemoglobin g/dl 14.3 --(*---)-- 13.5 17.5 Procedure Procedure Types Cath Procedure Diagnostic Procedure C [facility] w/Coronaries FFR/IVUS FFR Initial PCI Procedure Coronary Stent Coronary Stent Initial Hemochron ACT Test Procedure Description Procedure Date Procedure Date: 09/26/2020 Procedure Start Time: 14:02 Procedure End Time: 14:31 Procedure Staff Name Function Luis Carlos Smith MD Performing Physician Eliana Peters RT Monitor Ana Dunne RT Scrub Fadi Henley RN Nurse Pablito Yap CRNA Additional personnel Procedure Data Cath Procedure Fluoroscopy Diagnostic fluoroscopy Total fluoroscopy Time: 3.9 time: 3.9 min min Diagnostic fluoroscopy Total fluoroscopy dose: 254 dose: 254 mGy mGy Contrast Material Contrast Material Type Amount (ml) Isovue 370 96 Entry Location Entry Primary Successful Side Size Upsize Upsize Entry Closure Succes sful Closure Location (Fr) 1 (Fr) 2 (Fr) Remarks Device Remarks Femoral Right 5 Fr 6 Fr Exoseal artery Short Estimated blood loss: 10 ml Diagnostic catheters Device Type Used For End Catheter Placement MULTIPACK JL 4.0 5Fr Procedure catheter MULTIPACK 3DRC 5Fr Procedure catheter MULTIPACK Pigtail 5 Fr Procedure catheter Procedure Complications No complications Procedure Medications Medication Administration Route Dosage Oxygen etCO2 Nasal cannula 2 l/min Lidocaine 2% added to field 20 Heparin Flush Bag added to field 2 bags (1000units/500ml NS) 0.9% NaCl I.V. 100 ml/hr Refer to Anesthesia Notes for Sedation Medications Heparin Bolus I.V. 6000 units Plavix P.O. 75 mg Hemodynamics Rest BSA: 1.64 (m2) HGB: 14.3 (g/dl) O2 Consumption: Estimated: 167.22 (ml/min) O2 Co nsumption indexed: Estimated:101.96 (ml/min/m) Heart Rate: 76 (bpm) Pressure Samples Time Site Value (mmHg) Purpose Heart Use Rate(bpm) 14:11 LV 113/-11,8 Snapshot 87 14:12 AO 105/54(79) Pullback 91 14:12 LV 104/-14,4 Pullback 91 Gradients Valve Time Site 1 Site 2 Mean SEP/DFP Peak To Heart Use (mmHg) (sec/min) Peak Rate (mmHg) (bpm) Aortic 14:12 LV AO 0 27 0 91 104/-14,4 105/54(79) Calculations Valve P-P Mean Valve Index Valve Source Name Gradient Area Flow (cm2) Aortic 0 0 0 0 Snapshots Pre Cath Intra NCS Post Cath Vital Signs Time Heart Resp SPO2 etCO2 NIBP (mmHg) Rhythm Pain Sedation Rate (ipm) (%) (mmHg) Status Level (bpm) 13:51:35 68 12 99 33.1 133/93(109) NSR 0 (11) 10(A) , No pain 13:53:48 82 19 95 0 121/82(100) NSR 0 (11) 10(A) , No pain 13:57:58 82 16 98 32.3 107/72(91) NSR 0 (11) 10(A) , No pain 14:02:02 86 16 97 37.6 105/73(78) NSR 0 (11) 9(A) , No pain 14:06:06 83 15 98 39.9 104/67(88) NSR 0 (11) 9(A) , No pain 14:10:07 85 15 98 42.9 109/75(97) NSR 0 (11) 9(A) , No pain 14:14:11 89 14 97 42.9 106/74(94) NSR 0 (11) 9(A) , No pain 14:18:19 91 15 97 40.6 92/60(72) NSR 0 (11) 9(A) , No pain 14:22:21 90 15 96 39.1 101/63(81) NSR 0 (11) 9(A) , No pain 14:26:24 92 16 96 37.6 103/68(88) NSR 0 (11) 10(A) , No pain 14:30:31 92 13 97 32.4 109/79(90) NSR 0 (11) 9(A) , No pain Medications Time Medication Route Dose Verified Delivered Reason Notes Effectiveness by by 13:49:16 Oxygen etCO2 2 Luis Carlos Buffie used for Nasal l/min Luis Henley RN procedure cannula 13:49:22 Lidocaine 2% added 20ml Luis Carlos Luis Carols for local to vial Luis Smith MD anesthetic field 13:49:35 Heparin Flush added 2 Luis Carlos Luis Carlos used for Bag to bags Luis Smith MD procedure (1000units/500ml field NS) 13:49:43 0.9% NaCl I.V. 100 Luis Carlos Buffie Per physician ml/hr Luis Henley RN 14:01:03 Refer to Luis Carlos Buffie Anesthesia Notes Luis Henley RN for Sedation Medications 14:14:40 Heparin Bolus I.V. 6000 Luis Carlos Buffie for verif ed units Luis Henley RN anticoagulation with dr smith 14:29:13 Plavix P.O. 75 mg Luis Carlos Buffie for Luis Henley RN antiplatelet therapy Procedure Log Time Note 12:36:18 Informed consent obtained and on chart 12:36:31 Diagnostic Cath Status : Elective 12:36:55 Arrival Date: 09/26/2020 12:00:00 AM 12:36:55 Admit Source: Other 12:37:00 Insurance Payor : Private health insurance 12:39:28 ACC Patient presents with Stable Angina CCS Anginal Class 2--Slight limitation of ordinary activity. 12:39:32 Procedure Status Elective Heart Cath (OP). 12:39:33 Time tracking: Regular hours (M-F 7:00 - 5:00) 12:39:39 Plan of Care:Hemodynamics will remain stable., Cardiac rhythm will tim in stable., Comfort level will be maintained., Respiratory function will remain adequate., Patient/ family verbilizes understanding of procedure., Procedure tolerated without complication., Recovers from procedure without complications.. 12:39:55 H&P Date Dictated: 09/05/2020 Within 30 days and on chart.. 12:40:02 Pre-procedure instructions explained to patient. 12:40:03 Pre-op teaching completed and patient verbalized understanding. 12:40:04 Family unavailable. 12:40:06 Patient NPO since Midnight. 12:40:13 Lab results pending. 12:40:34 Stress Test: yes; abnormal LATERAL 12:40:35 Alarms reviewed by R. N. 12:40:36 Sharps counted by scrub and verified by R.N. 12:41:19 Patient Height : 66 inches 12:41:31 Patient Weight : 125 lbs 12:59:28 Risk of Mortality: 0.1 12:59:30 Risk of blood transfusion: 1.1 12:59:32 Risk of ILDA: 0.9 12:59:42 Lab results completed and on chart. 13:00:19 Lab Result : Creatinine 0.9 mg/dl 13:00:19 Lab Result : BUN 8 mg/dl 13:00:19 Lab Result : Hemoglobin 14.3 g/dl 13:00:19 Lab Result : eGFR NONAFRICAN 72 ml/min 13:00:19 Lab Result : Hematocrit 41.2 % 13:37:22 Ana Dunne RT(R) sent for patient. Start room use. 13:41:54 Patient received from Pre/Post Procedure Room to CCL 1 Alert and orient ed. Tansferred to table in Supine position. 13:49:16 Oxygen 2 l/min etCO2 Nasal cannula was administered by Fadi Henley RN; used for procedure; Verbal order read back and verified. 13:49:22 Lidocaine 2% 20ml vial added to field was administered by Luis Carlos Smith MD ; for local anesthetic; Verbal order read back and verified. 13:49:35 Heparin Flush Bag (1000units/500ml NS) 2 bags added to field was admini stered by Luis Carlos Smith MD; used for procedure; Verbal order read back and verified. 13:49:43 0.9% NaCl 100 ml/hr I.V. was administered by Fadi Henley RN; Per physic goyo; Verbal order read back and verified. 13:50:26 Vital chart was started 13:54:14 Warm blankets applied, and connie hugger turned on for patient comfort. 13:54:14 Correct patient and procedure confirmed by team. 13:54:15 ECG and BP/O2 sat monitors applied to patient. 13:54:16 Full Disclosure recording started 13:54:18 Baseline sample Acquired. 13:54:21 Rhythm: sinus rhythm 13:54:47 Patient allergic to Other allergyLATEX, DILAUDID, LYRICA, ROBINUL 13:54:50 Is the patient allergic to Iodine/contrast media? No. 13:54:52 Was the patient premedicated? Yes 13:54:53 Is patient on blood thinner?Yes 13:54:56 ACC The patient was administered the following blood thiners within the last 24 hours: ACCAspirin, ACCPlavix 13:54:58 Patient diabetic? No. 13:55:00 Pablito Yap CRNA present and monitoring patient for TIVA. 13:55:00 If diabetic: On Metformin? N/A 13:55:04 Patient not . Patient has had hysterectomy. 13:55:05 ----Pre-sedation anethsthesia assessment.---- 13:55:08 Previous problem with sedation/anesthesia? No ? 13:55:09 Snore? Yes 13:55:10 Sleep apnea? Unknown 13:55:11 Deviated septum? No 13:55:13 Opens mouth fully? Yes 13:55:28 Sticks out tongue? Yes 13:55:38 Airway obstruction? No ? 13:55:40 Dentures? No ? 13:55:45 Pre procedure: right dorsailis pedis pulse 2+ Normal; easily identifiab le; not easily obliterated 13:55:47 Patient pain scale 0/10 ?. 13:56:22 IV patent on arrival in left antecubital with 0.9% NaCl at O. 13:56:26 Right groin area was prepped with chlora-prep and draped in sterile fas hion 13:56:29 --------ALL STOP TIME OUT------ 13:56:30 Final Timeout: patient, procedure, and site verified with staff and jorge mejia. All members of the team are in agreement. 13:56:33 Right groin site verified by team. 13:56:52 Fire Safety Assessment: A--An alcohol-based skin anteseptic being used preoperatively., C--Open oxygen or nitrous oxide is being used., D--An ESU, laser, or fiber-optic light is being used. 13:56:55 Physical assessment completed. ASA score P 2 - A patient with mild syst emic disease as per Luis Carlos Smith MD. 13:56:59 2) 60-89 Mildly reduced kidney function, and other findings (as for sta ge 1) point to kidney disease. 13:57:01 Maximum allowable contrast dose (3.7 X eGFR X 0.75)200 ml. 13:57:05 Sedation plan: IV Moderate Sedation Medication:Versed, Fentanyl 14:01:03 Refer to Anesthesia Notes for Sedation Medications was administered by Fadi Henley RN; ; Verbal order read back and verified. 14:01:18 Procedure started. 14:01:59 Use device set Femoral Dx 14:02:00 ACIST Syringe (48645) opened to sterile field. 14:02:00 Bag Decanter (2002S) opened to sterile field. 14:02:01 Medline Cath Pack ([id number]) opened to sterile field. 14:02:02 ACIST Hand Control (17771) opened to sterile field. 14:02:02 ACIST Manifold (81225) opened to sterile field. 14:02:03 DIAGNOSTIC Multipack 5Fr catheter set ([id number]) opened to sterile field. 14:02:04 SHEATH 5FR Lester (DAW849) opened to sterile field. 14:02:04 EMERALD Guide Wire (742-830) opened to sterile field. 14:02:07 Tegaderm 4 x 4 (1626W) opened to sterile field. 14:02:25 Local anesthetic to right femoral artery with Lidocaine 2% by Luis Carlos grant MD.INITIAL ACCESS ONLY 14:05:31 A 5 Fr sheath was inserted into the Right Femoral artery 14:06:27 A MULTIPACK JL 4.0 5Fr catheter was advanced over the wire and used for Procedure. 14:06:54 LCA angiography performed. 14:06:57 Injector settings: Ml/sec: 3, Volume: 6, 14:07:53 Catheter exchanged over wire. 14:09:18 A MULTIPACK 3DRC 5Fr catheter was advanced over the wire and used for Procedure. 14:09:21 RCA angiography performed. 14:09:30 Injector settings: Ml/sec: 3, Volume: 6, 14:10:17 Catheter exchanged over wire. 14:10:42 A MULTIPACK Pigtail 5 Fr catheter was advanced over the wire and used f or Procedure. 14:10:45 Zero performed for pressure channel P1 14:11:29 LV gram done using BUENROSTRO 14:11:36 LV hemodynamics recorded. 14:11:39 Injector settings: Ml/sec: 5, Volume: 15, 14:12:02 EF : 55 % 14:12:30 Catheter exchanged over wire. 14:12:31 Proceeding to intervention. 14:12:34 Use device set SMITH PCI 14:12:36 TUBING High Pressure Extension Tubing (Smith) ([id number]) opened to steri le field. 14:12:37 INFLATOR Merit Keyshak (IU2594) opened to sterile field. 14:13:24 SHEATH 6FR Lester (BXY791) opened to sterile field. 14:13:26 [place] OmniWire (07504) opened to sterile field. 14:13:41 Sheath upsized to a 6 Fr Short. 14:13:48 -ADVANC ED 14:14:20 GUIDE 6FR JR 4.0 catheter ([id number]) opened to sterile field. 14:14:40 Heparin Bolus 6000 units I.V. was administered by Fadi Henley RN; for anticoagulation; verifed with dr smith Verbal order read back and verified. 14:15:00 6 Fr JR 4 guide catheter was inserted over the wire 14:17:19 Pressure wire advanced. 14:18:32 Wire advanced across lesion. 14:20:28 Pre PCI Site: [place] mRCA has 80% stenosis. 14:21:13 CHOICE PT Extra Support J 300cm guide wire ([id number]) opened to steril e field. 14:22:15 Place stent Inflation Number: 1 A ANTHONY RX 3.5 x 30 stent ([id number]) was prepped and advanced across the Mid RCA 80. The stent was deployed at 12 RODRÍGUEZ for 0:13 (min:sec) . 14:22:32 Stent catheter was removed intact over wire. 14:22:49 Wire advanced across lesion. 14:24:05 mRCA lesion measured at 1.06 with IFR 14:25:21 Wire removed. 14:25:22 Guide catheter removed. 14:25:26 EXOSEAL 6Fr (EX600) opened to sterile field. 14::00 Sheath removed intact; hemostasis achieved with Exoseal to the Right Fe moral artery. 14::48 Fluoroscopy time 03.90 minutes. 14::52 Flurop Dose total: 254 14::52 Fluoroscopy dose: 254 mGy 14::58 Dose Area Product 96427 mGy/cm. 14:27:03 Contrast amount:Isovue 370 96ml. 14:27:07 Maximum allowable dose exceeded? No. 14:27:08 Sharps counted by scrub and verified by R.N. 14:27:13 Post-op/insertion site Right Femoral artery dressed using a 4 x 4 and Tegaderm. 14:27:21 Post right femoral artery:stable, soft, clean and dry 14:27:24 Post Procedure Pulses reassessed and unchanged 14::26 Post procedure: right dorsailis pedis pulse 2+ Normal; easily identifia ble; not easily obliterated. 14:27:29 Post-procedure physical assessment completed. ASA score P 2 - A patient with mild systemic disease as per Luis Carlos Smith MD. 14:27:32 Post procedure rhythm: unchanged. 14:27:35 Estimated blood loss: 10 ml 14::27 Post procedure instruction explained to patient.Patient verbalizes understanding. 14:28:28 Patient needs reinforcement of post procedure teaching. 14:28:46 Procedure type changed to Cath procedure, Diagnostic procedure, LHC, C w/Coronaries, FFR/IVUS, FFR Initial, PCI procedure, Coronary Stent, Coronary Stent Initial, Hemochron ACT Test 14:28:56 Procedure ended.(Physican Out) 14:29:13 Plavix 75 mg P.O. was administered by Fadi Henley RN; for antiplatelet therapy; Verbal order read back and verified. 14::46 ACT drawn and resulted at 269 seconds. (normal therapeutic range 180-24 0 seconds). 14:31:02 Procedure and supply charges have been captured, reviewed, submitted an d are correct. 14:31:06 Procedure Complication : No complications 14:31:13 Vital chart was stopped 14:31:16 [facility] Findings: MVD- PCI performed (see procedure note) 14:31:19 Operative report dictated upon procedure completion. 14:31:20 See physician's report for complete and final results. 14:31:21 Report given to Pre/Post Procedure Room. 14:31:24 Patient transfered to Pre/Post Procedure Room with Stretcher. 14:31:26 Procedure ended. 14:31: Full Disclosure recording stopped 14:31:38 ACC-PCI Only Patient was given prescriptions, or instructed by Luis Carlos Smith MD to start/continue the following medications upon discharge: Aspirin, Plavix 14:31:40 End room use (Document Last) 14:31:50 End room use (Document Last) 14:32:06 End room use (Document Last) Intervention Summary Intervention Notes Time ActionType Lesion and Equipment Used Action# Pressure Duration Attributes 14:22:15 Place stent Mid RCA ANTHONY RX 3.5 x 1 12 00:13 30 stent ([id number]) Device Usage Item Name Manufacture Quantity Catalog Number Hospital Part Current M inimal Lot# / Charge Number Stock Stock Serial# Code ACIST Syringe Acist 1 98307 024611 936695 674976 2 0 (23372) Medical Systems Inc Bag Decanter Microtek 1 2001S 921655 40051 706018 5 (2001S) Medical Inc. Medline Cath Medline 1 [id number] 922470 98071 930714 5 Pack ([id number]) ACIST Hand Acist 1 53073 223517 097707 650244 5 Control Medical (66181) Systems Inc ACIST Manifold Acist 1 56697 815180 593719 584798 5 (37321) Medical Systems Inc DIAGNOSTIC Cardinal 1 WN1830 842183 00346 990294 3 0 Multipack 5Fr Health catheter set (TP8615) SHEATH 5FR Terumo 1 STS428 695550 545188 082567 5 Lester (DFQ323) EMERALD Guide Cardinal 1 502-455 984110 406768 836709 5 Wire (502-455) Health Tegaderm 4 x 4 3M 1 1626W 256689 765000 299532 5 (1626W) MULTIPACK JL Cardinal 1 684448 5 4.0 5Fr Health catheter MULTIPACK 3DRC Cardinal 1 622498 5 5Fr catheter Health MULTIPACK Cardinal 1 707840 5 Pigtail 5 Fr Health catheter TUBING High Merit 1 [id number] 348277 12146 192160 1 0 Pressure Medical Extension Tubing (Luis) ([id number]) INFLATOR Merit Merit 1 WN9313 913983 756166 455235 1 5 BasixCompak Medical ([id number]) SHEATH 6FR Terumo 1 JSP556 334783 815432 470623 4 0 Lester (VFB857) [place] 1 3233572 674570 54842 9988 5 OmniWire (97886) GUIDE 6FR JR Medtronic 1 [id number] 482236 20226 563798 1 4.0 catheter ([id number]) CHOICE PT Confluence 1 [id number] 276036 20181230 097915 5 Extra Support Scientific J 300cm guide wire ([id number]) ANTHONY RX 3.5 x Medtronic 1 [id number] 971641 8847211 237464 5 [id number] 30 stent ([id number]) EXOSEAL 6Fr Cardinal 1 EX600 612198 734740 276336 1 0 (EX600) Health Signature Audit [place] Stage Time Signature Unsigned Intra-Procedure 09/26/2020 Eliana Peters 2:31:50 PM RT(R) Intra-Procedure 09/26/2020 Fadi Henley RN 2:32:06 PM Intra-Procedure 09/26/2020 Luis Carlos Smith MD 2:32:32 PM [facility] [address] [place] [address]
[2020-09-26 12:35] VITALS: BP 149/86; Ht 167.6 cm; Wt 58.1 kg
[2020-09-26 12:42] LABS: BASOPHILS 0.1 % (0-2); EOSINOPHILS 2.7 % (0-7); HEMATOCRIT 41.2 % (36.0-48.0); HEMOGLOBIN 14.3 g/dL (12-16); IMMATURE GRANULOCYTES 0.1 % (0-5); MCH 30.8 pg (26.0-34.0); MCHC 34.7 g/dL (31.0-37.0); MCV 88.8 fL (80.0-100.0); MEAN PLATELET VOLUME 9.2 fL (7.4-10.4); MONOCYTES 9.2 % (2-11); NEUTROPHIL ABS# 4.37 10x3/uL (1.56-6.13); NEUTROPHILS 55.9 % (40-80); RBC 4.64 10x6/uL (4.00-5.40); RDW 13.1 % (11.5-14.5); WBC 7.8 10x3/uL (4.8-10.8)
[2020-09-26 12:47] LABS: PLATELET COUNT 250 10x3/uL (130-400)
[2020-09-26 12:56] LABS: ANION GAP 12.4 mmol/L (8-16); CALCIUM 8.9 mg/dL (8.5-10.1); CARBON DIOXIDE 26.7 mmol/L (21.0-32.0); CHOL - HDL RATIO 2.7 ratio (2.3-4.1); CREATININE - SERUM 0.9 mg/dL (0.6-1.3); LDL-HDL RATIO 1.3 ratio (1.5-3.5); POTASSIUM - SERUM 4.1 mmol/L (3.5-5.1)
--- NOTE | 2020-09-26 14:45 | NUR ---
PT RECEIVED BACK TO ROOM 3 VIA STRETCHER FOR RECOVERY. PT DROWSY BUT AWAKE, DENIES PAIN OR DISCOMFORT. IV PATENT INFUSING VIA L ARM PER ORDERS. PT PLACED ON CARDIAC MONITORS, HR NSR RATE 79, BP 123/85, RR 14, SAT 96 ON ROOM AIR. 6FR EXOCELE TO R GROIN, DRESSING CDI NO S/S HEMATOMA OR BLEEDING NOTED. LEG PINK AND WARM, PEDAL PULSES PALPABLE. PT INSTRUCTED TO KEEP HEAD ON PILLOW AND LEG STRAIGHT, SHE VERBALIZED UNDERSTANDING. DR VENTURA AT BS, NO NEW ORDERS RECEVIED. CALL LIGHT IN REACH, SON AT BS
[2020-09-26] MEDS ORDERED: PLAVIX75 MG PO (14:48)
--- NOTE | 2020-09-26 15:14 | NUR ---
PT RESTING COMFORTABLY. DENIES PAIN OR NEEDS AT THIS TIME. PT TOLERATING PO FLUIDS. VSS AT PRESENT. R GROIN SOFT, DRESSING CDI NO S/S HEMATOMA OR BLEEDING. CALL LIGHT IN REACH
--- NOTE | 2020-09-26 16:00 | NUR ---
PT RESTING COMFORTABLY, DENIES PAIN OR NEEDS AT THIS TIME. R GROIN SOFT, DRESSING CDI NO S/S HEMATOMA OR BLEEDING NOTED. CALL LIGHT IN REACH
--- NOTE | 2020-09-26 16:30 | NUR ---
R GROIN SOFT, DRESSING CDI NO S/S HEMATOMA OR BLEEDING. CALL LIGHT REMAINS IN REACH, SON AT BS
--- NOTE | 2020-09-26 17:00 | NUR ---
R GROIN EXOSEAL SITE SOFT, NO S/S BLEEDING OR HEMATOMA. PT VOIDED 350ML CLEAR, YELLOW URINE ON BEDPAN, VANESA-CARE PROVIDED. PT REPOSITIONED FOR COMFORT. ALARMS ON AND C/L IN REACH.
--- NOTE | 2020-09-26 17:30 | NUR ---
R GROIN EXOSEAL SITE SOFT, NO S/S BLEEDING OR HEMATOMA. R LEG/FOOT WARM WITH PALP PULSES, CAP REFILL WNL. VSS. HOB ELEVATED, SANDWICH TRAY AND COLA PROVIDED. SON AT BEDSIDE. ALARMS ON AND C/L IN REACH.
--- NOTE | 2020-09-26 18:00 | NUR ---
R GROIN SITE SOFT, NO S/S BLEEDING OR HEMATOMA. PT REPORTS "A LITTLE TENDER". PULSES PALP. VSS. DISCHARGE TEACHING REVIEWED, INCLUDING RESTRICTIONS, MEDS AND F/U APPT - PT VERBALIZES UNDERSTANDING AND REPORTS "I HAVE HAD THIS DONE A COUPLE TIMES BEFORE".
--- NOTE | 2020-09-26 18:18 | NUR ---
D/C INSTRUCTIONS AND HOME MED LIST REVIEWED AND SIGNED. PIV D/C'D INTACT, DSG APPLIED. PT ALLOWED UP TO GET DRESSED AND GO TO BR INDEPENDENTLY.
--- NOTE | 2020-09-26 18:24 | NUR ---
PT D/C'D VIA WC TO PRIVATE VEHICLE WITH ALL PAPERWORK AND BELONGINGS.
== END 2020-09-26 18:24 | disposition home or self-care (01) ==
LOC: D.CATH 11:58
PROVIDERS: ATTEND Internal Medicine Cardiovascular Disease
DX: R94.39 Abnormal result of other cardiovascular function study (principal); I25.118 Atherosclerotic heart disease of native coronary artery with other forms of angina pectoris; R07.9 Chest pain, unspecified; R01.1 Cardiac murmur, unspecified; R06.00 Dyspnea, unspecified; I34.0 Nonrheumatic mitral (valve) insufficiency